=== PATIENT | female | born 1965 | race Caucasian/White ===

== ENCOUNTER 2023-09-16 15:23 | Inpatient (IN) | payer MEDICAID ==
[~2023-09-16] VITALS: Ht 160 cm; Wt 102.6 kg
[2023-09-16 16:34] LABS: BASOPHILS # (AUTO) 0.1 X10'3 (0-0.2); BASOPHILS % (AUTO) 0.3 % (0-1); EOSINOPHILS % (AUTO) 0.2 % (0-6); HEMATOCRIT 39.9 % (35.0-45.0); HEMOGLOBIN 13.1 g/dl (12.0-16.0); LYMPHOCYTES # (AUTO) 1.1 X10'3 (1.1-4.8); LYMPHOCYTES % (AUTO) 5.9 % (21-51); MEAN CORPUSCULAR HEMOGLOBIN 27.2 PG (27.0-31.0); MEAN CORPUSCULAR HGB CONC 32.8 g/dL (33.0-36.5); MEAN CORPUSCULAR VOLUME 83.1 FL (78-98); MEAN PLATELET VOLUME 8.5 FL (7.4-10.4); MONOCYTES # (AUTO) 1.4 X10'3 (0-0.9); MONOCYTES % (AUTO) 7.9 % (2-12); NEUTROPHILS # (AUTO) 15.4 X10'3 (1.8-7.7); NEUTROPHILS % (AUTO) 85.7 % (42-75); PLATELET COUNT 317 X10'3 (140-440); RED CELL DISTRIBUTION WIDTH 15.4 % (11.5-14.5)
[2023-09-16 16:47] LABS: ALBUMIN 2.6 G/DL (3.4-5.0); ANION GAP 16 (8-16); BLOOD UREA NITROGEN 29 MG/DL (7-18); BUN/CREATININE RATIO 20.6 (10.0-20.0); CALCIUM 9.7 MG/DL (8.5-10.1); CHLORIDE 92 MMOL/L (99-107); CREATININE 1.41 MG/DL (0.40-0.90); GLUCOSE 331 MG/DL (70-104); POTASSIUM 4.5 MMOL/L (3.5-5.1); SODIUM 127 MMOL/L (135-145); eCRCL 36 ML/MIN; eGFR 38 ML/MIN
[2023-09-16] MEDS: CLINDAMYCIN 600mg IN NS 50ML 50 ML IV ONE (17:50)
[2023-09-16 18:27] LABS: MAGNESIUM 2.4 MG/DL (1.5-2.4)
[2023-09-16 18:50] LABS: ETHANOL < 10 MG/DL (<10)
[2023-09-16 18:54] LABS: C-REACTIVE PROTEIN 28.27 MG/DL (0.0-0.5)
[2023-09-16] MEDS: insulin regular, human 10 units/0.1 ml syringe SQ ONE (18:57)
[2023-09-16] MEDS: piperacillin/tazo 3.375gm/50ml 50 ML IV STA (18:58)
[2023-09-16] MEDS: clindamycin 600mg/D5W 50ml 50 ML IV ONE (18:59)
[2023-09-16] MEDS: ondansetron/PF 4mg/2ml inj IV ONE (18:59)
[2023-09-16] MEDS: normal saline 1000ML IV soln IVB ONE (18:59)
[2023-09-16] MEDS: HYDROmorphone 1 mg/ml syringe IV ONE (18:59)
[2023-09-16] MEDS: TETanus/Pertussis (Acell)/Diphther VAC/PF (Tdap-Adult) 0.5ml syringe IMVAC ONE (19:00)
[2023-09-16 19:11] LABS: APTT 28 SECONDS (22-32); INR 1.1 INR; PROTHROMBIN TIME 11.1 SECONDS (9.0-12.0)
[2023-09-16] MEDS: vancomycin/NS 1 GM ADD-VANTAGE 250 ML IV SCH (20:25)
[2023-09-16] MEDS: normal saline 1000ml 1,000 ML IV ONE (20:26)
[2023-09-16] MEDS ORDERED: ondansetron/PF 4mg/2ml inj IV PRN (20:55)
[2023-09-16] MEDS ORDERED: mag hydrox/Alum hydrox/simeth 30ml oral suspension PO PRN (20:55)
[2023-09-16] MEDS ORDERED: potassium Cl 40MEQ/1/2NS 520ml 520 ML IV PRN (20:55)
[2023-09-16] MEDS ORDERED: magnesium hydroxide 30ml (MOM) UD suspension PO PRN (20:55)
[2023-09-16] MEDS ORDERED: magnesium 4gm in 100ml NS 100 ML IV PRN (20:55)
[2023-09-16] MEDS ORDERED: acetaminophen 325mg tablet PO PRN (20:55)
[2023-09-16] MEDS ORDERED: potassium Cl 20 mEq SR tablet PO PRN ×2 (20:55)
[2023-09-16] MEDS ORDERED: magnesium Cl slow-release 64mg tablet PO PRN (20:55)
[2023-09-17 00:30] LABS: BILIRUBIN,URINE NEGATIVE (Neg); COLOR,URINE YELLOW (Yellow); GLUCOSE, URINE >=1000 mg/dl (Neg); KETONES,URINE 15 mg/dl (Neg); LEUKOCYTE ESTERASE ,URINE NEGATIVE (Neg); NITRITES, URINE POSITIVE (Neg); OCCULT BLOOD,URINE SMALL (Neg); PROTEIN,URINE 30 mg/dl (Neg); UROBILINOGEN,URINE 0.2 E.U/dL (0.2-1.0)
[2023-09-17] MEDS: piperacillin/tazo 4.5gm/100ml 100 ML IV SCH (00:30)
[2023-09-17 00:41] LABS: CLARITY,URINE SLIGHTLY CLOUDY (Clear)
[2023-09-17 00:50] LABS: UA COLLECTION TYPE NON-SPECIFIED
[2023-09-17 00:53] LABS: MUCUS STRANDS FEW /LPF (Neg); SQUAMOUS EPITHELIAL CELL,UR FEW /LPF (FEW); TRANSITIONAL EPI CELLS,URINE FEW /HPF; WBC CLUMPS,URINE FEW /HPF (NEGATIVE)
[2023-09-17 00:54] LABS: RENAL CELLS, URINE MODERATE /HPF; YEAST MANY /HPF (NEGATIVE)
[2023-09-17 00:55] LABS: BACTERIA,URINE 3+ /HPF (Neg)
[2023-09-17 01:00] LABS: URINE AMPHETAMINE SCREEN NEGATIVE (Neg); URINE BARBITUATE SCREEN NEGATIVE (Neg); URINE BENZODIAZEPINES SCREEN NEGATIVE (Neg); URINE CANNABINOID SCREEN NEGATIVE (Neg); URINE COCAINE SCREEN NEGATIVE (Neg); URINE METHADONE SCREEN NEGATIVE (Neg); URINE OPIATE SCREEN POSITIVE (Neg); URINE PHENCYCLIDINE SCREEN NEGATIVE (Neg)
[2023-09-17] MEDS ORDERED: DEXTROSE 15 GM of carb/4 tabs (each vial/BOTTLE has 4 tablets) PO PRN ×2 (01:50)
[2023-09-17] MEDS ORDERED: glucagon, human recombinant 1mg kit SUBCUT PRN (01:50)
[2023-09-17] MEDS ORDERED: INSULIN LISPRO 100 UNIT/ML INSULN.PEN MULTI-DOSE SQ SCH (01:50)
[2023-09-17] MEDS ORDERED: dextrose 50%-water 50ml dispensing syringe IV PRN ×2 (01:50)
[2023-09-17] MEDS: MESSAGE TO PHARMACY PO ONE (02:35)
[2023-09-17] MEDS: ketorolac tromethamine 15mg/ml inj. IV ONE (03:19)
[2023-09-17 03:38] LABS: BASOPHILS # (AUTO) 0.1 X10'3 (0-0.2); BASOPHILS % (AUTO) 0.4 % (0-1); EOSINOPHILS # (AUTO) 0.1 X10'3 (0-0.9); EOSINOPHILS % (AUTO) 0.3 % (0-6); HEMATOCRIT 34.1 % (35.0-45.0); HEMOGLOBIN 11.1 g/dl (12.0-16.0); LYMPHOCYTES # (AUTO) 1.1 X10'3 (1.1-4.8); LYMPHOCYTES % (AUTO) 6.9 % (21-51); MEAN CORPUSCULAR HEMOGLOBIN 27.1 PG (27.0-31.0); MEAN CORPUSCULAR HGB CONC 32.7 g/dL (33.0-36.5); MEAN CORPUSCULAR VOLUME 82.9 FL (78-98); MEAN PLATELET VOLUME 8.1 FL (7.4-10.4); MONOCYTES # (AUTO) 1.6 X10'3 (0-0.9); MONOCYTES % (AUTO) 9.7 % (2-12); NEUTROPHILS # (AUTO) 13.2 X10'3 (1.8-7.7); NEUTROPHILS % (AUTO) 82.7 % (42-75); PLATELET COUNT 247 X10'3 (140-440); RED BLOOD COUNT 4.12 X10'6 (4.20-5.60); RED CELL DISTRIBUTION WIDTH 15.5 % (11.5-14.5)
[2023-09-17 03:53] LABS: ALBUMIN 2.1 G/DL (3.4-5.0); ANION GAP 9 (8-16); BLOOD UREA NITROGEN 30 MG/DL (7-18); BUN/CREATININE RATIO 21.7 (10.0-20.0); CALCIUM 8.1 MG/DL (8.5-10.1); CHLORIDE 95 MMOL/L (99-107); CREATININE 1.38 MG/DL (0.40-0.90); GLUCOSE 304 MG/DL (70-104); POTASSIUM 4.6 MMOL/L (3.5-5.1); SODIUM 126 MMOL/L (135-145); eCRCL 36 ML/MIN; eGFR 39 ML/MIN
[2023-09-17 04:01] LABS: HEMOGLOBIN A1C 9.3 % (4.5-6.2)
[2023-09-17] MEDS: ringers solution, lacted 1,000 ML IV ONE ×2 (04:15→16:44)
[2023-09-17 07:55] VITALS: BP 139/76; PULSE 87; RESP 16; TEMP 98.9; O2SAT 99
[2023-09-17 07:56] VITALS: RESP 16; O2SAT 99
[2023-09-17] MEDS: aspirin 81mg, enteric-coated 1 TAB TABLET.DR PO SCH (10:15)
[2023-09-17] MEDS: enoxaparin 40mg/0.4ml syringe SUBCUT SCH (10:16)
[2023-09-17] MEDS: atorvastatin 20mg tablet PO SCH (10:17)
[2023-09-17] MEDS: lisinopril 5mg tablet PO SCH (10:17)
[2023-09-17 11:27] VITALS: BP 144/74; PULSE 84; RESP 14; TEMP 99.2; O2SAT 98
[2023-09-17 13:15] VITALS: RESP 18; O2SAT 96
[2023-09-17] MEDS: insulin Lispro (HumaLOG) vial - multi-dose SQ SCH (14:39)
[2023-09-17 18:00] VITALS: BP 132/76; PULSE 85; RESP 14; TEMP 98; O2SAT 100
[2023-09-17 20:00] VITALS: RESP 18; O2SAT 96
[2023-09-17] MEDS: HYDROcodone/acetaminophen 5mg/325mg tablet PO PRN (20:16)
[2023-09-17] MEDS: insulin glargine (Lantus) pen - multi-dose SQ SCH (22:05)
[2023-09-18] VITALS (21 sets, daily range): BP systolic 108–188; BP diastolic 58–76; PULSE 71–90; RESP 12–20; TEMP 97.1–98.1; O2SAT 65–100
[2023-09-18] MEDS: famotidine 20mg tablet PO ONE (06:49)
[2023-09-18] MEDS ORDERED: hydrALAZINE 20mg/ml inj. IV PRN (07:15)
[2023-09-18] MEDS ORDERED: labetalol 20mg/4ml (5mg/ml) syringe IV PRN (07:15)
[2023-09-18] MEDS ORDERED: ondansetron/PF 4mg/2ml inj IV PRN (07:15)
[2023-09-18] MEDS ORDERED: proCHLORperazine 10 MG/2 ml inj IV PRN (07:15)
[2023-09-18] MEDS: ringers solution, lacted 1,000 ML IV SCH (07:15)
[2023-09-18] MEDS ORDERED: morphine 2 MG/ML inj. syringe IV PRN (07:15)
[2023-09-18] MEDS: acetaminophen 1,000mg/100ml IV 100 ML IV ONE (07:15)
[2023-09-18] MEDS: ketorolac trometh. 30mg/ml inj. IV ONE (07:15)
[2023-09-18] MEDS ORDERED: morphine 4 MG/ML inj SYRINge IV PRN (07:15)
[2023-09-18] MEDS ORDERED: meperidine/PF 25mg/ml syringe IV PRN ×3 (07:15)
[2023-09-18] MEDS: VANCOMYCIN LEVEL IV ONE (07:30)
[2023-09-18] MEDS ORDERED: sevoflurane 250ml liquid IH ONE (07:31)
[2023-09-18] MEDS ORDERED: fentaNYL/PF 50MCG/1 ML 2ML syringe ONE (07:42)
[2023-09-18] MEDS ORDERED: midazolam 1 mg/ML 2ml injection ONE (07:49)
[2023-09-18] MEDS ORDERED: propofol inj 20 ML IV ONE (07:49)
[2023-09-18] MEDS ORDERED: LIDOcaine 2% (20mg/ml) 5ml vial ONE (07:49)
[2023-09-18] MEDS ORDERED: ePHEDrine 50MG/ML INJ. ONE (07:55)
[2023-09-18] MEDS ORDERED: 0.9 % SODIUM CHLORIDE 10 ML VIAL ONE (07:55)
[2023-09-18] MEDS ORDERED: ondansetron/PF 4mg/2ml inj ONE (07:55)
[2023-09-18] MEDS: BUPIVAcaine/PF 2.5mg/ml (0.25%) 10ml vial ONE (08:09)
[2023-09-18 11:47] LABS: BASOPHILS % (AUTO) 0.2 % (0-1); EOSINOPHILS # (AUTO) 0.1 X10'3 (0-0.9); EOSINOPHILS % (AUTO) 0.7 % (0-6); HEMATOCRIT 33.9 % (35.0-45.0); HEMOGLOBIN 10.9 g/dl (12.0-16.0); LYMPHOCYTES # (AUTO) 1.2 X10'3 (1.1-4.8); LYMPHOCYTES % (AUTO) 8.3 % (21-51); MEAN CORPUSCULAR HEMOGLOBIN 26.9 PG (27.0-31.0); MEAN CORPUSCULAR HGB CONC 32.2 g/dL (33.0-36.5); MEAN CORPUSCULAR VOLUME 83.6 FL (78-98); MEAN PLATELET VOLUME 8.1 FL (7.4-10.4); MONOCYTES # (AUTO) 1.1 X10'3 (0-0.9); MONOCYTES % (AUTO) 7.5 % (2-12); NEUTROPHILS # (AUTO) 12.1 X10'3 (1.8-7.7); NEUTROPHILS % (AUTO) 83.3 % (42-75); PLATELET COUNT 269 X10'3 (140-440); RED BLOOD COUNT 4.06 X10'6 (4.20-5.60); RED CELL DISTRIBUTION WIDTH 15.7 % (11.5-14.5); WHITE BLOOD COUNT 14.5 X10'3 (4.5-11.0)
[2023-09-18 12:13] LABS: ALBUMIN 1.8 G/DL (3.4-5.0); ANION GAP 16 (8-16); BLOOD UREA NITROGEN 22 MG/DL (7-18); BUN/CREATININE RATIO 21.6 (10.0-20.0); CALCIUM 8.9 MG/DL (8.5-10.1); CHLORIDE 101 MMOL/L (99-107); CREATININE 1.02 MG/DL (0.40-0.90); GLUCOSE 245 MG/DL (70-104); POTASSIUM 4.5 MMOL/L (3.5-5.1); SODIUM 132 MMOL/L (135-145); TOTAL CARBON DIOXIDE 15.2 MMOL/L (24-32); VANCOMYCIN,TROUGH 14.3 ug/mL (10.0-20.0); eCRCL 49 ML/MIN; eGFR 55 ML/MIN
[2023-09-19 02:00] VITALS: BP 130/84; PULSE 81; RESP 16; TEMP 98.1; O2SAT 99
[2023-09-19] MEDS ORDERED: DEXTROSE 15 GM of carb/4 tabs (each vial/BOTTLE has 4 tablets) PO PRN ×2 (02:00)
[2023-09-19] MEDS ORDERED: dextrose 50%-water 50ml dispensing syringe IV PRN ×2 (02:00)
[2023-09-19] MEDS ORDERED: glucagon, human recombinant 1mg kit SUBCUT PRN (02:00)
[2023-09-19 06:30] VITALS: BP 122/71; PULSE 77; RESP 16; TEMP 97.9; O2SAT 99
[2023-09-19] MEDS: insulin Lispro (HumaLOG) vial - multi-dose SQ SCH ×3 (07:00→12:30)
[2023-09-19 07:46] LABS: BASOPHILS # (AUTO) 0.1 X10'3 (0-0.2); BASOPHILS % (AUTO) 0.4 % (0-1); EOSINOPHILS # (AUTO) 0.1 X10'3 (0-0.9); EOSINOPHILS % (AUTO) 1.1 % (0-6); HEMATOCRIT 34.8 % (35.0-45.0); HEMOGLOBIN 11.4 g/dl (12.0-16.0); LYMPHOCYTES # (AUTO) 1.3 X10'3 (1.1-4.8); LYMPHOCYTES % (AUTO) 9.2 % (21-51); MEAN CORPUSCULAR HGB CONC 32.8 g/dL (33.0-36.5); MEAN CORPUSCULAR VOLUME 82.5 FL (78-98); MEAN PLATELET VOLUME 8.1 FL (7.4-10.4); MONOCYTES # (AUTO) 1.1 X10'3 (0-0.9); MONOCYTES % (AUTO) 8.3 % (2-12); NEUTROPHILS # (AUTO) 11.2 X10'3 (1.8-7.7); PLATELET COUNT 304 X10'3 (140-440); RED BLOOD COUNT 4.21 X10'6 (4.20-5.60); RED CELL DISTRIBUTION WIDTH 15.5 % (11.5-14.5); WHITE BLOOD COUNT 13.8 X10'3 (4.5-11.0)
[2023-09-19 07:55] LABS: ALBUMIN 1.7 G/DL (3.4-5.0); ANION GAP 6 (8-16); BLOOD UREA NITROGEN 16 MG/DL (7-18); BUN/CREATININE RATIO 14.5 (10.0-20.0); CALCIUM 8.8 MG/DL (8.5-10.1); CHLORIDE 101 MMOL/L (99-107); GLUCOSE 182 MG/DL (70-104); POTASSIUM 3.9 MMOL/L (3.5-5.1); SODIUM 130 MMOL/L (135-145); eCRCL 46 ML/MIN; eGFR 51 ML/MIN
[2023-09-19 08:00] VITALS: RESP 16; O2SAT 99
[2023-09-19 10:00] VITALS: BP 123/55; PULSE 88; RESP 18; TEMP 98.1; O2SAT 97
[2023-09-19] MEDS: JUVEN Smoothie Arginine/Glut./Ca2+Bmb (Juven 19.3pkt) 240ml cup PO SCH (12:30)
[2023-09-19 18:00] VITALS: BP 132/80; PULSE 82; RESP 16; TEMP 98.2; O2SAT 99
[2023-09-19] MEDS: docusate sod 100mg capsule PO SCH (21:14)
[2023-09-19] MEDS: insulin glargine (Lantus) pen - multi-dose SQ SCH (21:22)
[2023-09-19] MEDS: morphine 2 MG/ML inj. syringe IV PRN (21:32)
[2023-09-19 22:00] VITALS: BP 127/82; PULSE 68; RESP 16; TEMP 97.6; O2SAT 97
[2023-09-20 07:02] VITALS: BP 141/83; PULSE 79; RESP 16; TEMP 97.9; O2SAT 100
[2023-09-20 07:19] LABS: BASOPHILS % (AUTO) 0.3 % (0-1); EOSINOPHILS # (AUTO) 0.2 X10'3 (0-0.9); EOSINOPHILS % (AUTO) 1.5 % (0-6); HEMATOCRIT 34.1 % (35.0-45.0); HEMOGLOBIN 11.1 g/dl (12.0-16.0); LYMPHOCYTES # (AUTO) 1.2 X10'3 (1.1-4.8); LYMPHOCYTES % (AUTO) 9.6 % (21-51); MEAN CORPUSCULAR HEMOGLOBIN 26.9 PG (27.0-31.0); MEAN CORPUSCULAR HGB CONC 32.4 g/dL (33.0-36.5); MEAN CORPUSCULAR VOLUME 82.9 FL (78-98); MEAN PLATELET VOLUME 7.9 FL (7.4-10.4); MONOCYTES # (AUTO) 1.1 X10'3 (0-0.9); MONOCYTES % (AUTO) 8.8 % (2-12); NEUTROPHILS # (AUTO) 10.2 X10'3 (1.8-7.7); NEUTROPHILS % (AUTO) 79.8 % (42-75); PLATELET COUNT 307 X10'3 (140-440); RED BLOOD COUNT 4.11 X10'6 (4.20-5.60); RED CELL DISTRIBUTION WIDTH 15.4 % (11.5-14.5); WHITE BLOOD COUNT 12.8 X10'3 (4.5-11.0)
[2023-09-20 07:30] LABS: ALBUMIN 1.6 G/DL (3.4-5.0); ANION GAP 9 (8-16); BLOOD UREA NITROGEN 21 MG/DL (7-18); BUN/CREATININE RATIO 19.6 (10.0-20.0); CALCIUM 8.7 MG/DL (8.5-10.1); CHLORIDE 99 MMOL/L (99-107); CREATININE 1.07 MG/DL (0.40-0.90); GLUCOSE 271 MG/DL (70-104); POTASSIUM 3.8 MMOL/L (3.5-5.1); SODIUM 130 MMOL/L (135-145); TOTAL CARBON DIOXIDE 22.4 MMOL/L (24-32); eCRCL 47 ML/MIN; eGFR 52 ML/MIN
[2023-09-20 09:00] VITALS: RESP 16; O2SAT 98
[2023-09-20 10:00] VITALS: BP 128/72; PULSE 85; RESP 16; TEMP 97.7; O2SAT 98
[2023-09-20 10:40] LABS: TOTAL CELLS COUNTED 100
[2023-09-20 10:42] LABS: PLATELET ESTIMATE NORMAL
[2023-09-20] MEDS ORDERED: SEMA2PEN SUBCUT (13:01)
[2023-09-20] MEDS ORDERED: LISI20TA28 PO (13:02)
[2023-09-20] MEDS ORDERED: METF-438 PO (13:04)
[2023-09-20] MEDS ORDERED: INSU100V11 SQ (13:05)
[2023-09-20] MEDS ORDERED: MELO-102 PO (13:05)
[2023-09-20] MEDS ORDERED: DULO-31 PO (13:06)
[2023-09-20] MEDS ORDERED: INSU100I31 (13:06)
[2023-09-20] MEDS ORDERED: GABA600T13 PO (13:08)
[2023-09-20] MEDS ORDERED: ATOR20TA PO (13:09)
[2023-09-20] MEDS ORDERED: DAPA10TA PO (13:11)
[2023-09-20] MEDS ORDERED: DICL100G59 TOP (13:13)
[2023-09-20] MEDS ORDERED: LIDO15CR11 TOP (13:14)
[2023-09-20] MEDS ORDERED: PRAZ1CAP5 PO (13:15)
[2023-09-20] MEDS: insulin Lispro (HumaLOG) vial - multi-dose SQ SCH (13:53)
[2023-09-20 18:00] VITALS: BP 128/78; PULSE 78; RESP 16; TEMP 98.3; O2SAT 100
[2023-09-20 20:00] VITALS: RESP 15; O2SAT 99
[2023-09-21 06:46] VITALS: BP 141/76; PULSE 77; RESP 14; TEMP 97.8; O2SAT 99
[2023-09-21 07:09] LABS: BASOPHILS # (AUTO) 0.1 X10'3 (0-0.2); BASOPHILS % (AUTO) 0.6 % (0-1); EOSINOPHILS # (AUTO) 0.3 X10'3 (0-0.9); EOSINOPHILS % (AUTO) 1.9 % (0-6); HEMATOCRIT 34.1 % (35.0-45.0); HEMOGLOBIN 11.1 g/dl (12.0-16.0); LYMPHOCYTES # (AUTO) 1.5 X10'3 (1.1-4.8); LYMPHOCYTES % (AUTO) 10.5 % (21-51); MEAN CORPUSCULAR HEMOGLOBIN 27.1 PG (27.0-31.0); MEAN CORPUSCULAR HGB CONC 32.7 g/dL (33.0-36.5); MEAN PLATELET VOLUME 7.7 FL (7.4-10.4); MONOCYTES % (AUTO) 6.8 % (2-12); NEUTROPHILS # (AUTO) 11.5 X10'3 (1.8-7.7); NEUTROPHILS % (AUTO) 80.2 % (42-75); PLATELET COUNT 356 X10'3 (140-440); RED CELL DISTRIBUTION WIDTH 15.3 % (11.5-14.5); WHITE BLOOD COUNT 14.3 X10'3 (4.5-11.0)
[2023-09-21 07:40] LABS: ALBUMIN 1.6 G/DL (3.4-5.0); ANION GAP 10 (8-16); BLOOD UREA NITROGEN 22 MG/DL (7-18); BUN/CREATININE RATIO 20.2 (10.0-20.0); CALCIUM 9.2 MG/DL (8.5-10.1); CHLORIDE 97 MMOL/L (99-107); CREATININE 1.09 MG/DL (0.40-0.90); GLUCOSE 245 MG/DL (70-104); POTASSIUM 4.2 MMOL/L (3.5-5.1); SODIUM 130 MMOL/L (135-145); TOTAL CARBON DIOXIDE 23.2 MMOL/L (24-32); eCRCL 46 ML/MIN; eGFR 51 ML/MIN
[2023-09-21 08:00] VITALS: RESP 18; O2SAT 97
[2023-09-21 08:33] VITALS: RESP 14
[2023-09-21] MEDS: lisinopril 20mg tablet PO SCH (10:13)
[2023-09-21] MEDS: duloxetine 30mg CAPSULE.DR PO SCH (10:13)
[2023-09-21] MEDS: gabapentin 300mg capsule PO SCH ×2 (10:13→19:29)
[2023-09-21 10:36] VITALS: BP 154/90; PULSE 81; RESP 16; TEMP 98.6; O2SAT 98
[2023-09-21 18:00] VITALS: BP 120/70; PULSE 84; RESP 16; TEMP 98.8; O2SAT 97
[2023-09-21] MEDS: acetaminophen 325mg tablet PO PRN (20:21)
[2023-09-21] MEDS: cyclobenzaprine 10mg tablet PO SCH (20:21)
[2023-09-21 22:25] VITALS: BP 142/78; PULSE 81; RESP 16; TEMP 98.4; O2SAT 97
[2023-09-21] MEDS: insulin glargine (Lantus) pen - multi-dose SQ SCH (22:35)
[2023-09-22 06:00] VITALS: BP 122/74; PULSE 78; RESP 18; TEMP 98.7; O2SAT 98
[2023-09-22 08:00] VITALS: RESP 14; O2SAT 98
[2023-09-22 10:12] LABS: BASOPHILS # (AUTO) 0.1 X10'3 (0-0.2); BASOPHILS % (AUTO) 0.3 % (0-1); EOSINOPHILS # (AUTO) 0.3 X10'3 (0-0.9); EOSINOPHILS % (AUTO) 2.1 % (0-6); HEMATOCRIT 33.4 % (35.0-45.0); HEMOGLOBIN 10.7 g/dl (12.0-16.0); LYMPHOCYTES # (AUTO) 1.6 X10'3 (1.1-4.8); LYMPHOCYTES % (AUTO) 10.2 % (21-51); MEAN CORPUSCULAR HEMOGLOBIN 26.6 PG (27.0-31.0); MEAN CORPUSCULAR HGB CONC 31.9 g/dL (33.0-36.5); MEAN CORPUSCULAR VOLUME 83.4 FL (78-98); MONOCYTES # (AUTO) 0.9 X10'3 (0-0.9); NEUTROPHILS # (AUTO) 12.5 X10'3 (1.8-7.7); NEUTROPHILS % (AUTO) 81.4 % (42-75); PLATELET COUNT 362 X10'3 (140-440); RED BLOOD COUNT 4.01 X10'6 (4.20-5.60); RED CELL DISTRIBUTION WIDTH 15.5 % (11.5-14.5); WHITE BLOOD COUNT 15.4 X10'3 (4.5-11.0)
[2023-09-22 10:23] LABS: ALBUMIN 1.7 G/DL (3.4-5.0); ANION GAP 9 (8-16); BLOOD UREA NITROGEN 24 MG/DL (7-18); BUN/CREATININE RATIO 18.2 (10.0-20.0); CHLORIDE 98 MMOL/L (99-107); CREATININE 1.32 MG/DL (0.40-0.90); GLUCOSE 387 MG/DL (70-104); POTASSIUM 4.1 MMOL/L (3.5-5.1); SODIUM 131 MMOL/L (135-145); TOTAL CARBON DIOXIDE 24.3 MMOL/L (24-32); eCRCL 38 ML/MIN; eGFR 41 ML/MIN
[2023-09-22 11:00] VITALS: BP 115/67; PULSE 83; RESP 18; TEMP 97.6; O2SAT 97
[2023-09-22] MEDS: insulin Lispro (HumaLOG) vial - multi-dose SQ SCH (13:43)
[2023-09-22 18:00] VITALS: BP 132/64; PULSE 82; RESP 16; TEMP 98.3; O2SAT 96
[2023-09-22 22:12] VITALS: BP 127/70; PULSE 74; RESP 16; TEMP 99.4; O2SAT 96
[2023-09-23 05:44] VITALS: BP 113/66; PULSE 77; RESP 18; TEMP 99.4; O2SAT 97
[2023-09-23 06:24] LABS: BASOPHILS # (AUTO) 0.1 X10'3 (0-0.2); BASOPHILS % (AUTO) 0.7 % (0-1); EOSINOPHILS # (AUTO) 0.3 X10'3 (0-0.9); EOSINOPHILS % (AUTO) 1.9 % (0-6); HEMATOCRIT 30.8 % (35.0-45.0); HEMOGLOBIN 10.2 g/dl (12.0-16.0); LYMPHOCYTES # (AUTO) 1.5 X10'3 (1.1-4.8); LYMPHOCYTES % (AUTO) 10.9 % (21-51); MEAN CORPUSCULAR HEMOGLOBIN 27.5 PG (27.0-31.0); MEAN CORPUSCULAR HGB CONC 33.1 g/dL (33.0-36.5); MEAN CORPUSCULAR VOLUME 83.2 FL (78-98); MEAN PLATELET VOLUME 7.3 FL (7.4-10.4); MONOCYTES # (AUTO) 0.9 X10'3 (0-0.9); MONOCYTES % (AUTO) 6.6 % (2-12); NEUTROPHILS # (AUTO) 10.8 X10'3 (1.8-7.7); NEUTROPHILS % (AUTO) 79.9 % (42-75); PLATELET COUNT 333 X10'3 (140-440); RED CELL DISTRIBUTION WIDTH 15.6 % (11.5-14.5); WHITE BLOOD COUNT 13.5 X10'3 (4.5-11.0)
[2023-09-23 06:34] LABS: ALBUMIN 1.5 G/DL (3.4-5.0); ANION GAP 4 (8-16); BLOOD UREA NITROGEN 19 MG/DL (7-18); BUN/CREATININE RATIO 14.5 (10.0-20.0); CALCIUM 8.7 MG/DL (8.5-10.1); CHLORIDE 100 MMOL/L (99-107); CREATININE 1.31 MG/DL (0.40-0.90); GLUCOSE 239 MG/DL (70-104); POTASSIUM 4.2 MMOL/L (3.5-5.1); SODIUM 130 MMOL/L (135-145); TOTAL CARBON DIOXIDE 25.8 MMOL/L (24-32); eCRCL 38 ML/MIN; eGFR 42 ML/MIN
[2023-09-23 07:45] VITALS: BP 140/78; PULSE 82; RESP 14; TEMP 98.7; O2SAT 96
[2023-09-23 10:45] VITALS: RESP 14; O2SAT 96
[2023-09-23 18:00] VITALS: BP 107/60; PULSE 72; RESP 18; TEMP 97.7; O2SAT 98
[2023-09-23 22:00] VITALS: BP 125/56; PULSE 73; RESP 15; TEMP 97.4; O2SAT 99
[2023-09-24] VITALS (17 sets, daily range): BP systolic 87–138; BP diastolic 50–74; PULSE 18–86; RESP 13–20; TEMP 97.7–98.7; O2SAT 92–100
[2023-09-24 06:46] LABS: ALBUMIN 1.5 G/DL (3.4-5.0); ANION GAP 6 (8-16); BASOPHILS # (AUTO) 0.1 X10'3 (0-0.2); BASOPHILS % (AUTO) 0.7 % (0-1); BLOOD UREA NITROGEN 19 MG/DL (7-18); BUN/CREATININE RATIO 17.8 (10.0-20.0); CALCIUM 8.9 MG/DL (8.5-10.1); CHLORIDE 101 MMOL/L (99-107); CREATININE 1.07 MG/DL (0.40-0.90); EOSINOPHILS # (AUTO) 0.3 X10'3 (0-0.9); EOSINOPHILS % (AUTO) 2.3 % (0-6); GLUCOSE 255 MG/DL (70-104); HEMATOCRIT 30.8 % (35.0-45.0); LYMPHOCYTES # (AUTO) 1.5 X10'3 (1.1-4.8); LYMPHOCYTES % (AUTO) 12.1 % (21-51); MEAN CORPUSCULAR HGB CONC 32.6 g/dL (33.0-36.5); MEAN CORPUSCULAR VOLUME 82.8 FL (78-98); MEAN PLATELET VOLUME 7.4 FL (7.4-10.4); MONOCYTES # (AUTO) 0.9 X10'3 (0-0.9); NEUTROPHILS # (AUTO) 9.7 X10'3 (1.8-7.7); NEUTROPHILS % (AUTO) 77.9 % (42-75); PLATELET COUNT 347 X10'3 (140-440); POTASSIUM 4.1 MMOL/L (3.5-5.1); RED BLOOD COUNT 3.72 X10'6 (4.20-5.60); RED CELL DISTRIBUTION WIDTH 15.5 % (11.5-14.5); SODIUM 132 MMOL/L (135-145); TOTAL CARBON DIOXIDE 24.6 MMOL/L (24-32); WHITE BLOOD COUNT 12.4 X10'3 (4.5-11.0); eCRCL 47 ML/MIN; eGFR 52 ML/MIN
[2023-09-24] MEDS ORDERED: morphine 4 MG/ML inj SYRINge IV PRN (07:55)
[2023-09-24] MEDS ORDERED: meperidine/PF 25mg/ml syringe IV PRN ×2 (07:55)
[2023-09-24] MEDS ORDERED: ringers solution, lacted 1,000 ML IV SCH (07:55)
[2023-09-24] MEDS ORDERED: enalaprilat dihydrate 2.5mg/2ml vial IV PRN (07:55)
[2023-09-24] MEDS ORDERED: labetalol 20mg/4ml (5mg/ml) syringe IV PRN (07:55)
[2023-09-24] MEDS ORDERED: ondansetron/PF 4mg/2ml inj IV PRN (07:55)
[2023-09-24] MEDS ORDERED: morphine 2 MG/ML inj. syringe IV PRN (07:55)
[2023-09-24] MEDS ORDERED: proCHLORperazine 10 MG/2 ml inj IV PRN (07:55)
[2023-09-24] MEDS ORDERED: sevoflurane 250ml liquid IH ONE (08:38)
[2023-09-24] MEDS ORDERED: midazolam 1 mg/ML 2ml injection ONE (08:44)
[2023-09-24] MEDS ORDERED: fentaNYL/PF 50MCG/1 ML 2ML syringe ONE (08:44)
[2023-09-24] MEDS ORDERED: propofol inj 20 ML IV ONE (08:47)
[2023-09-24] MEDS ORDERED: LIDOcaine 2% (20mg/ml) 5ml vial ONE (08:48)
[2023-09-24] MEDS: BUPIVAcaine/PF 2.5mg/ml (0.25%) 10ml vial ONE (09:58)
[2023-09-24] MEDS: meperidine/PF 25mg/ml syringe IV PRN (10:38)
[2023-09-24] MEDS ORDERED: HYDROmorphone inj. 0.5 MG/0.5 ML DISP.SYRIN IV PRN (18:05)
[2023-09-24] MEDS: HYDROcodone/acetaminophen 10/325mg tab PO PRN (20:08)
[2023-09-25 02:00] VITALS: BP 123/68; PULSE 87; RESP 15; TEMP 97.4; O2SAT 95
[2023-09-25 06:00] VITALS: BP 121/82; PULSE 76; RESP 16; TEMP 98.2; O2SAT 97
[2023-09-25 06:41] LABS: BASOPHILS % (AUTO) 0.4 % (0-1); EOSINOPHILS # (AUTO) 0.2 X10'3 (0-0.9); EOSINOPHILS % (AUTO) 2.1 % (0-6); HEMOGLOBIN 9.5 g/dl (12.0-16.0); LYMPHOCYTES # (AUTO) 1.5 X10'3 (1.1-4.8); LYMPHOCYTES % (AUTO) 13.8 % (21-51); MEAN CORPUSCULAR HEMOGLOBIN 27.4 PG (27.0-31.0); MEAN CORPUSCULAR HGB CONC 32.7 g/dL (33.0-36.5); MEAN CORPUSCULAR VOLUME 83.6 FL (78-98); MEAN PLATELET VOLUME 7.4 FL (7.4-10.4); MONOCYTES # (AUTO) 0.9 X10'3 (0-0.9); MONOCYTES % (AUTO) 7.8 % (2-12); NEUTROPHILS # (AUTO) 8.3 X10'3 (1.8-7.7); NEUTROPHILS % (AUTO) 75.9 % (42-75); PLATELET COUNT 332 X10'3 (140-440); RED BLOOD COUNT 3.47 X10'6 (4.20-5.60); RED CELL DISTRIBUTION WIDTH 15.2 % (11.5-14.5); WHITE BLOOD COUNT 10.9 X10'3 (4.5-11.0)
[2023-09-25 06:47] LABS: ALBUMIN 1.6 G/DL (3.4-5.0); ANION GAP 7 (8-16); BLOOD UREA NITROGEN 19 MG/DL (7-18); CALCIUM 8.8 MG/DL (8.5-10.1); CHLORIDE 102 MMOL/L (99-107); CREATININE 1.36 MG/DL (0.40-0.90); GLUCOSE 290 MG/DL (70-104); POTASSIUM 4.4 MMOL/L (3.5-5.1); SODIUM 134 MMOL/L (135-145); TOTAL CARBON DIOXIDE 25.4 MMOL/L (24-32); eCRCL 37 ML/MIN; eGFR 40 ML/MIN
[2023-09-25] MEDS: normal saline 1000ml 1,000 ML IV SCH (08:59)
[2023-09-25 10:00] VITALS: BP 107/64; PULSE 86; RESP 16; TEMP 97.1; O2SAT 95
[2023-09-25 18:00] VITALS: BP 114/65; PULSE 85; RESP 16; TEMP 98.1; O2SAT 96
[2023-09-25 22:00] VITALS: BP 137/72; PULSE 83; RESP 16; TEMP 98.7; O2SAT 97
[2023-09-25] MEDS: insulin glargine (Lantus) pen - multi-dose SQ SCH (22:48)
[2023-09-26 06:00] VITALS: BP 114/69; PULSE 78; RESP 16; TEMP 98; O2SAT 99
[2023-09-26 07:34] LABS: BASOPHILS % (AUTO) 0.4 % (0-1); EOSINOPHILS # (AUTO) 0.3 X10'3 (0-0.9); HEMATOCRIT 26.9 % (35.0-45.0); HEMOGLOBIN 8.8 g/dl (12.0-16.0); LYMPHOCYTES # (AUTO) 1.5 X10'3 (1.1-4.8); LYMPHOCYTES % (AUTO) 15.6 % (21-51); MEAN CORPUSCULAR HEMOGLOBIN 27.4 PG (27.0-31.0); MEAN CORPUSCULAR HGB CONC 32.7 g/dL (33.0-36.5); MEAN CORPUSCULAR VOLUME 83.8 FL (78-98); MEAN PLATELET VOLUME 7.2 FL (7.4-10.4); MONOCYTES # (AUTO) 0.6 X10'3 (0-0.9); MONOCYTES % (AUTO) 6.5 % (2-12); NEUTROPHILS # (AUTO) 7.3 X10'3 (1.8-7.7); NEUTROPHILS % (AUTO) 74.5 % (42-75); PLATELET COUNT 317 X10'3 (140-440); RED BLOOD COUNT 3.21 X10'6 (4.20-5.60); RED CELL DISTRIBUTION WIDTH 15.2 % (11.5-14.5); WHITE BLOOD COUNT 9.8 X10'3 (4.5-11.0)
[2023-09-26 07:41] LABS: ALBUMIN 1.4 G/DL (3.4-5.0); ANION GAP 5 (8-16); BLOOD UREA NITROGEN 19 MG/DL (7-18); BUN/CREATININE RATIO 13.5 (10.0-20.0); CALCIUM 8.4 MG/DL (8.5-10.1); CHLORIDE 101 MMOL/L (99-107); CREATININE 1.41 MG/DL (0.40-0.90); GLUCOSE 255 MG/DL (70-104); POTASSIUM 4.3 MMOL/L (3.5-5.1); SODIUM 133 MMOL/L (135-145); TOTAL CARBON DIOXIDE 27.4 MMOL/L (24-32); eCRCL 36 ML/MIN; eGFR 38 ML/MIN
[2023-09-26] MEDS: HYDROcodone/acetaminophen 10/325mg tab PO PRN (08:46)
[2023-09-26 10:00] VITALS: BP 120/69; PULSE 79; RESP 16; TEMP 98.4; O2SAT 98
[2023-09-26 18:00] VITALS: BP 120/71; PULSE 79; RESP 14; TEMP 98.1; O2SAT 97
[2023-09-26 22:00] VITALS: BP 135/68; PULSE 79; RESP 16; TEMP 97.8; O2SAT 99
[2023-09-27 07:11] LABS: BASOPHILS # (AUTO) 0.1 X10'3 (0-0.2); BASOPHILS % (AUTO) 0.5 % (0-1); EOSINOPHILS # (AUTO) 0.3 X10'3 (0-0.9); EOSINOPHILS % (AUTO) 2.6 % (0-6); HEMATOCRIT 29.1 % (35.0-45.0); HEMOGLOBIN 9.7 g/dl (12.0-16.0); LYMPHOCYTES # (AUTO) 1.4 X10'3 (1.1-4.8); LYMPHOCYTES % (AUTO) 14.2 % (21-51); MEAN CORPUSCULAR HEMOGLOBIN 27.7 PG (27.0-31.0); MEAN CORPUSCULAR HGB CONC 33.3 g/dL (33.0-36.5); MEAN CORPUSCULAR VOLUME 83.2 FL (78-98); MEAN PLATELET VOLUME 7.2 FL (7.4-10.4); MONOCYTES # (AUTO) 0.6 X10'3 (0-0.9); MONOCYTES % (AUTO) 5.7 % (2-12); NEUTROPHILS # (AUTO) 7.6 X10'3 (1.8-7.7); PLATELET COUNT 346 X10'3 (140-440); RED CELL DISTRIBUTION WIDTH 15.3 % (11.5-14.5); WHITE BLOOD COUNT 9.8 X10'3 (4.5-11.0)
[2023-09-27 07:28] LABS: ALBUMIN 1.6 G/DL (3.4-5.0); ANION GAP 7 (8-16); BLOOD UREA NITROGEN 19 MG/DL (7-18); BUN/CREATININE RATIO 14.6 (10.0-20.0); CALCIUM 9.2 MG/DL (8.5-10.1); CHLORIDE 101 MMOL/L (99-107); GLUCOSE 260 MG/DL (70-104); POTASSIUM 4.6 MMOL/L (3.5-5.1); SODIUM 134 MMOL/L (135-145); TOTAL CARBON DIOXIDE 25.7 MMOL/L (24-32); eCRCL 39 ML/MIN; eGFR 42 ML/MIN
[2023-09-27 08:15] VITALS: RESP 16; O2SAT 98
[2023-09-27 13:45] VITALS: PULSE 62; RESP 18; TEMP 97.7; O2SAT 98
[2023-09-27 18:00] VITALS: BP 120/69; PULSE 68; RESP 16; TEMP 97.4; O2SAT 99
[2023-09-27 20:03] VITALS: RESP 14; O2SAT 99
[2023-09-28 06:00] VITALS: BP 115/69; PULSE 78; RESP 16; TEMP 98.2; O2SAT 98
[2023-09-28 08:00] VITALS: RESP 14; O2SAT 99
[2023-09-28 10:52] VITALS: BP 130/74; PULSE 82; RESP 18; TEMP 97.4; O2SAT 96
[2023-09-28 11:01] VITALS: TEMP 97.8
[2023-09-28 22:00] VITALS: BP 131/71; PULSE 82; RESP 16; TEMP 98.4; O2SAT 98
[2023-09-29 06:00] VITALS: BP 118/63; PULSE 74; RESP 15; TEMP 97; O2SAT 99
[2023-09-29 10:00] VITALS: BP 135/75; PULSE 79; RESP 18; TEMP 97.8; O2SAT 98
[2023-09-29 10:10] LABS: BASOPHILS % (AUTO) 0.5 % (0-1); EOSINOPHILS # (AUTO) 0.4 X10'3 (0-0.9); EOSINOPHILS % (AUTO) 4.7 % (0-6); HEMATOCRIT 28.8 % (35.0-45.0); HEMOGLOBIN 9.6 g/dl (12.0-16.0); LYMPHOCYTES # (AUTO) 1.2 X10'3 (1.1-4.8); LYMPHOCYTES % (AUTO) 14.7 % (21-51); MEAN CORPUSCULAR HGB CONC 33.5 g/dL (33.0-36.5); MEAN CORPUSCULAR VOLUME 83.5 FL (78-98); MEAN PLATELET VOLUME 6.7 FL (7.4-10.4); MONOCYTES # (AUTO) 0.4 X10'3 (0-0.9); MONOCYTES % (AUTO) 4.9 % (2-12); NEUTROPHILS # (AUTO) 6.4 X10'3 (1.8-7.7); NEUTROPHILS % (AUTO) 75.2 % (42-75); PLATELET COUNT 397 X10'3 (140-440); RED BLOOD COUNT 3.45 X10'6 (4.20-5.60); RED CELL DISTRIBUTION WIDTH 15.1 % (11.5-14.5); WHITE BLOOD COUNT 8.5 X10'3 (4.5-11.0)
[2023-09-29 10:45] LABS: ALANINE AMINOTRANSFERASE 22 U/L (12-78); ALBUMIN 1.6 G/DL (3.4-5.0); ALBUMIN/GLOBULIN RATIO 0.2 (1.1-1.5); ALKALINE PHOSPHATASE 86 IU/L (46-116); ANION GAP 5 (8-16); ASPARTATE AMINO TRANSFERASE 15 U/L (10-37); BILIRUBIN,TOTAL 0.2 MG/DL (0.1-1.0); BLOOD UREA NITROGEN 19 MG/DL (7-18); BUN/CREATININE RATIO 14.8 (10.0-20.0); CALCIUM 8.9 MG/DL (8.5-10.1); CHLORIDE 101 MMOL/L (99-107); CREATININE 1.28 MG/DL (0.40-0.90); GLUCOSE 222 MG/DL (70-104); POTASSIUM 3.9 MMOL/L (3.5-5.1); SODIUM 134 MMOL/L (135-145); TOTAL CARBON DIOXIDE 28.3 MMOL/L (24-32); TOTAL PROTEIN 8.1 G/DL (6.4-8.2); eCRCL 39 ML/MIN; eGFR 43 ML/MIN
[2023-09-29 18:00] VITALS: BP 106/66; PULSE 83; RESP 17; TEMP 97.2; O2SAT 97
[2023-09-29 20:00] VITALS: RESP 18; O2SAT 97
[2023-09-29 22:00] VITALS: BP 118/68; PULSE 78; RESP 15; TEMP 97.6; O2SAT 99
[2023-09-30 06:00] VITALS: BP 129/75; PULSE 77; RESP 14; TEMP 97; O2SAT 99
[2023-09-30 07:26] LABS: BASOPHILS % (AUTO) 0.2 % (0-1); EOSINOPHILS # (AUTO) 0.4 X10'3 (0-0.9); EOSINOPHILS % (AUTO) 5.9 % (0-6); HEMOGLOBIN 9.1 g/dl (12.0-16.0); LYMPHOCYTES # (AUTO) 1.5 X10'3 (1.1-4.8); LYMPHOCYTES % (AUTO) 20.6 % (21-51); MEAN CORPUSCULAR HEMOGLOBIN 27.4 PG (27.0-31.0); MEAN CORPUSCULAR HGB CONC 32.6 g/dL (33.0-36.5); MEAN CORPUSCULAR VOLUME 83.9 FL (78-98); MEAN PLATELET VOLUME 7.1 FL (7.4-10.4); MONOCYTES # (AUTO) 0.5 X10'3 (0-0.9); MONOCYTES % (AUTO) 6.9 % (2-12); NEUTROPHILS # (AUTO) 4.7 X10'3 (1.8-7.7); NEUTROPHILS % (AUTO) 66.4 % (42-75); PLATELET COUNT 368 X10'3 (140-440); RED BLOOD COUNT 3.34 X10'6 (4.20-5.60); RED CELL DISTRIBUTION WIDTH 15.3 % (11.5-14.5); WHITE BLOOD COUNT 7.1 X10'3 (4.5-11.0)
[2023-09-30 08:06] LABS: ALANINE AMINOTRANSFERASE 18 U/L (12-78); ALBUMIN 1.5 G/DL (3.4-5.0); ALBUMIN/GLOBULIN RATIO 0.2 (1.1-1.5); ALKALINE PHOSPHATASE 76 IU/L (46-116); ANION GAP 5 (8-16); ASPARTATE AMINO TRANSFERASE 11 U/L (10-37); BILIRUBIN,TOTAL 0.2 MG/DL (0.1-1.0); BLOOD UREA NITROGEN 23 MG/DL (7-18); CALCIUM 8.9 MG/DL (8.5-10.1); CHLORIDE 103 MMOL/L (99-107); CREATININE 1.35 MG/DL (0.40-0.90); GLUCOSE 212 MG/DL (70-104); POTASSIUM 4.5 MMOL/L (3.5-5.1); SODIUM 137 MMOL/L (135-145); TOTAL CARBON DIOXIDE 29.1 MMOL/L (24-32); TOTAL PROTEIN 7.7 G/DL (6.4-8.2); eCRCL 37 ML/MIN; eGFR 40 ML/MIN
[2023-09-30 10:35] VITALS: BP 121/62; PULSE 77; RESP 17; TEMP 98.5; O2SAT 97
== END 2023-09-30 15:00 | DRG 305 ==
LOC: ER 15:23 → ED HOLD 21:04 → EDBEDREQ 09-17 06:18 → ORTHO 4S 09-17 07:35
PROVIDERS: ADMIT Internal Medicine Critical Care Medicine; ATTEND Internal Medicine
PROC: 0Y6P0Z1 Detachment at Right 1st Toe, High, Open Approach (ICD-10-PCS; 2023-09-18)
PROC: 0Y6M0Z0 Detachment at Right Foot, Complete, Open Approach (ICD-10-PCS; principal; 2023-09-21)
DX: E11.69 Type 2 diabetes mellitus with other specified complication (principal); N17.0 Acute kidney failure with tubular necrosis; A48.0 Gas gangrene; J98.2 Interstitial emphysema; E87.1 Hypo-osmolality and hyponatremia; M86.8X7 Other osteomyelitis, ankle and foot; E11.52 Type 2 diabetes mellitus with diabetic peripheral angiopathy with gangrene; L03.115 Cellulitis of right lower limb; E11.40 Type 2 diabetes mellitus with diabetic neuropathy, unspecified; E11.621 Type 2 diabetes mellitus with foot ulcer; L97.519 Non-pressure chronic ulcer of other part of right foot with unspecified severity; E11.65 Type 2 diabetes mellitus with hyperglycemia; D72.829 Elevated white blood cell count, unspecified; Z20.822 Contact with and (suspected) exposure to COVID-19; L03.031 Cellulitis of right toe; E86.0 Dehydration; I10 Essential (primary) hypertension; E66.01 Morbid (severe) obesity due to excess calories; Z98.891 History of uterine scar from previous surgery; Z68.41 Body mass index [BMI] 40.0-44.9, adult
CPT/HCPCS: 36415; 71045; 73630; 73718; 80048; 80053; 80202; 80305; 80320; 81001; 82948; 83036; 83605; 83735; 84145; 85007; 85025; 85610; 85651; 85730; 86140; 87040; 87070; 87075; 87076; 87077; 87081; 87088; 87102; 87186; 87502; 87503; 87811; 90471; 90715; 93005; 93922; 96365; 96367; 96375; 97116; 97161; 97530; 97535; 99285; A4618; A6154; A6222; A6223; A6250; A6253; A6258; A6446; A6449; A7000; G0378; J1100; J1170; J1650; J1815; J1885; J2175; J2250; J2270; J2405; J2543; J2704; J3010; J3370; J3490; J7030; J7040; J7120

== ENCOUNTER 2023-11-12 23:15 | Inpatient (IN) | payer MEDICAID ==
[~2023-11-12] VITALS: Ht 160 cm; Wt 97.7 kg
[~2023-11-12 23:15] MED LIST: ATOR20TA PO; DAPA10TA PO; DICL100G59 TOP; DULO-31 PO; GABA600T13 PO; INSU100I31; INSU100V11 SQ; LIDO15CR11 TOP; LISI20TA28 PO; MELO-102 PO; METF-438 PO; PRAZ1CAP5 PO; SEMA2PEN SUBCUT
[2023-11-12 23:49] LABS: BASOPHILS % (AUTO) 0.2 % (0-1); BILIRUBIN,URINE SMALL (Neg); CLARITY,URINE SLIGHTLY CLOUDY (Clear); COLOR,URINE YELLOW (Yellow); EOSINOPHILS % (AUTO) 0 % (0-6); GLUCOSE, URINE >=1000 mg/dl (Neg); KETONES,URINE 40 mg/dl (Neg); LEUKOCYTE ESTERASE ,URINE NEGATIVE (Neg); MEAN CORPUSCULAR VOLUME 81.2 FL (78-98); MEAN PLATELET VOLUME 7.9 FL (7.4-10.4); MONOCYTES # (AUTO) 0.6 X10'3 (0-0.9); NITRITES, URINE NEGATIVE (Neg); OCCULT BLOOD,URINE MODERATE (Neg); PH,URINE 5.5 (4.8-8.0); PROTEIN,URINE 100 mg/dl (Neg); UROBILINOGEN,URINE 0.2 E.U/dL (0.2-1.0)
[2023-11-12 23:51] LABS: HEMATOCRIT 27.1 % (35.0-45.0); HEMOGLOBIN 8.9 g/dl (12.0-16.0); LYMPHOCYTES # (AUTO) 0.4 X10'3 (1.1-4.8); MEAN CORPUSCULAR HEMOGLOBIN 26.7 PG (27.0-31.0); MEAN CORPUSCULAR HGB CONC 32.9 g/dL (33.0-36.5); MONOCYTES % (AUTO) 6.7 % (2-12); NEUTROPHILS % (AUTO) 89.1 % (42-75); PLATELET COUNT 214 X10'3 (140-440); RED BLOOD COUNT 3.33 X10'6 (4.20-5.60); RED CELL DISTRIBUTION WIDTH 16.8 % (11.5-14.5)
[2023-11-12 23:55] LABS: UA COLLECTION TYPE FOLEY CATH
[2023-11-12 23:58] LABS: BACTERIA,URINE FEW /HPF (Neg); SQUAMOUS EPITHELIAL CELL,UR FEW /LPF (FEW); WBC,URINE 0-4 /HPF (0-4)
[2023-11-12 23:59] LABS: ALBUMIN 2.1 G/DL (3.4-5.0); ANION GAP 16 (8-16); BLOOD UREA NITROGEN 29 MG/DL (7-18); BUN/CREATININE RATIO 21.2 (10.0-20.0); CALCIUM 8.1 MG/DL (8.5-10.1); CHLORIDE 91 MMOL/L (99-107); CREATININE 1.37 MG/DL (0.40-0.90); GLUCOSE 307 MG/DL (70-104); MUCUS STRANDS FEW /LPF (Neg); SODIUM 122 MMOL/L (135-145); eCRCL 37 ML/MIN; eGFR 39 ML/MIN
[2023-11-13] VITALS (8 sets, daily range): BP systolic 115–142; BP diastolic 61–67; PULSE 83–102; RESP 12–23; TEMP 97.3–100.7; O2SAT 93–98
[2023-11-13 00:02] LABS: AMORPHOUS URATES 1+; TOTAL CARBON DIOXIDE 14.9 MMOL/L (24-32)
[2023-11-13] MEDS ORDERED: ondansetron/PF 4mg/2ml inj IV PRN (02:15)
[2023-11-13] MEDS ORDERED: mag hydrox/Alum hydrox/simeth 30ml oral suspension PO PRN (02:15)
[2023-11-13] MEDS ORDERED: potassium Cl 20 mEq SR tablet PO PRN ×2 (02:15)
[2023-11-13] MEDS ORDERED: magnesium hydroxide 30ml (MOM) UD suspension PO PRN (02:15)
[2023-11-13] MEDS ORDERED: magnesium 4gm in 100ml NS 100 ML IV PRN (02:15)
[2023-11-13] MEDS ORDERED: magnesium Cl slow-release 64mg tablet PO PRN (02:15)
[2023-11-13] MEDS ORDERED: potassium Cl 40MEQ/1/2NS 520ml 520 ML IV PRN (02:15)
[2023-11-13] MEDS ORDERED: magnesium 2GM in 50ml NS 50 ML IV PRN (02:15)
[2023-11-13] MEDS: normal saline 1000ml 1,000 ML IV ONE (02:17)
[2023-11-13 02:47] LABS: ABG BASE EXCESS -10.3 mmol/L (-2.0-2.0); ABG HCO3 13.6 mmol/L (22.0-26.0); ABG OXYGEN SATURATION 96.7 % (94-97); ABG PCO2 (T) 24.4 mmHg (32.0-45.0); ABG PH (T) 7.366 (7.350-7.450); ABG PO2 (T) 86.9 mmHg (75.0-100.0); ALLEN'S TEST Modified; FCOHb 0.3 % (0.0-3.9); FHHb 3.3 % (0.0-5.0); FMetHb 0.3 % (0.0-1.5); FO2Hb 96.1 % (94-97); MODE RA; PATIENT TEMPERATURE 37.1; TOTAL HEMOGLOBIN 9.7 G/dl (12.0-16.0)
[2023-11-13] MEDS: Insulin Reg/NS 100units/100mL 100 ML IV SCH (03:05)
[2023-11-13] MEDS: normal saline 1000ml 1,000 ML IV SCH ×2 (03:07→12:12)
[2023-11-13] MEDS: vancomycin/NS 1 GM ADD-VANTAGE 250 ML IV SCH (03:36)
[2023-11-13] MEDS: insulin regular, human U-100 3ml vial - multi-dose IV PRN (04:13)
[2023-11-13] MEDS: potassium CL 20mEq in D5-1/2NS 1,000 ML IV PRN (05:49)
[2023-11-13 06:39] LABS: POTASSIUM 3.4 MMOL/L (3.5-5.1)
[2023-11-13 07:15] LABS: ALBUMIN 2.1 G/DL (3.4-5.0); ANION GAP 10 (8-16); BLOOD UREA NITROGEN 26 MG/DL (7-18); BUN/CREATININE RATIO 22.8 (10.0-20.0); CALCIUM 8.6 MG/DL (8.5-10.1); CHLORIDE 98 MMOL/L (99-107); CREATININE 1.14 MG/DL (0.40-0.90); GLUCOSE 184 MG/DL (70-104); POTASSIUM 3.6 MMOL/L (3.5-5.1); SODIUM 126 MMOL/L (135-145); TOTAL CARBON DIOXIDE 18.2 MMOL/L (24-32); eCRCL 44 ML/MIN; eGFR 49 ML/MIN
[2023-11-13 07:31] LABS: % IRON SATURATION 6 % (11-46); IRON 9 UG/DL (49-151); TOTAL IRON BINDING CAPACITY 153 UG/DL (259-388)
[2023-11-13] MEDS: K and/or MAG REPLACEMENT MC SCH (08:00)
[2023-11-13] MEDS: heparin, porcine 5000 units/ml vial SQ SCH (08:25)
[2023-11-13] MEDS: docusate sod 100mg capsule PO SCH (08:25)
[2023-11-13] MEDS: CefTRIAXone/D5W-Rocephin 1gm 50 ML IV SCH (08:25)
[2023-11-13 10:17] LABS: ALANINE AMINOTRANSFERASE 14 U/L (12-78); ALBUMIN 2.1 G/DL (3.4-5.0); ALBUMIN/GLOBULIN RATIO 0.3 (1.1-1.5); ALKALINE PHOSPHATASE 87 IU/L (46-116); ANION GAP 11 (8-16); ASPARTATE AMINO TRANSFERASE 25 U/L (10-37); BILIRUBIN,TOTAL 0.3 MG/DL (0.1-1.0); BLOOD UREA NITROGEN 23 MG/DL (7-18); BUN/CREATININE RATIO 21.3 (10.0-20.0); CALCIUM 8.6 MG/DL (8.5-10.1); CHLORIDE 98 MMOL/L (99-107); CREATININE 1.08 MG/DL (0.40-0.90); GLUCOSE 169 MG/DL (70-104); PHOSPHORUS 2.1 MG/DL (2.3-4.5); POTASSIUM 3.6 MMOL/L (3.5-5.1); SODIUM 127 MMOL/L (135-145); TOTAL CARBON DIOXIDE 18.3 MMOL/L (24-32); TOTAL PROTEIN 8.4 G/DL (6.4-8.2); eCRCL 46 ML/MIN; eGFR 52 ML/MIN
[2023-11-13] MEDS: acetaminophen 325mg tablet PO PRN (11:36)
[2023-11-13] MEDS ORDERED: cefepime 1GM/NS ADD-VANTAGE 100 ML IV SCH (11:55)
[2023-11-13] MEDS ORDERED: DEXTROSE 15 GM of carb/4 tabs (each vial/BOTTLE has 4 tablets) PO PRN ×2 (12:00)
[2023-11-13] MEDS: INSULIN LISPRO 100 UNIT/ML INSULN.PEN MULTI-DOSE SQ SCH ×2 (12:00→13:00)
[2023-11-13] MEDS: insulin glargine (Lantus) pen - multi-dose SQ SCH (12:00)
[2023-11-13] MEDS ORDERED: glucagon, human recombinant 1mg kit SUBCUT PRN (12:00)
[2023-11-13] MEDS ORDERED: dextrose 50%-water 50ml dispensing syringe IV PRN ×2 (12:00)
[2023-11-13] MEDS: cefepime 1GM/NS ADD-VANTAGE 100 ML IV SCH (13:20)
[2023-11-13] MEDS: LIDOcaine 5% patch TP ONE (21:14)
[2023-11-14] VITALS (8 sets, daily range): BP systolic 95–128; BP diastolic 45–66; PULSE 75–86; RESP 16–21; TEMP 97–98; O2SAT 95–99
[2023-11-14 07:14] LABS: HEMOGLOBIN 8.5 g/dl (12.0-16.0); LYMPHOCYTES # (AUTO) 0.7 X10'3 (1.1-4.8); MONOCYTES # (AUTO) 0.9 X10'3 (0-0.9)
[2023-11-14 07:17] LABS: BASOPHILS % (AUTO) 0.4 % (0-1); EOSINOPHILS % (AUTO) 0.9 % (0-6); HEMATOCRIT 26.9 % (35.0-45.0); LYMPHOCYTES % (AUTO) 12.9 % (21-51); MEAN CORPUSCULAR HEMOGLOBIN 26.2 PG (27.0-31.0); MEAN CORPUSCULAR HGB CONC 31.6 g/dL (33.0-36.5); MEAN CORPUSCULAR VOLUME 82.8 FL (78-98); MEAN PLATELET VOLUME 8.2 FL (7.4-10.4); MONOCYTES % (AUTO) 17.2 % (2-12); NEUTROPHILS # (AUTO) 3.6 X10'3 (1.8-7.7); NEUTROPHILS % (AUTO) 68.6 % (42-75); PLATELET COUNT 130 X10'3 (140-440); RED BLOOD COUNT 3.25 X10'6 (4.20-5.60); RED CELL DISTRIBUTION WIDTH 17.7 % (11.5-14.5); WHITE BLOOD COUNT 5.2 X10'3 (4.5-11.0)
[2023-11-14 07:29] LABS: ALANINE AMINOTRANSFERASE 86 U/L (12-78); ALBUMIN 1.7 G/DL (3.4-5.0); ALBUMIN/GLOBULIN RATIO 0.3 (1.1-1.5); ALKALINE PHOSPHATASE 155 IU/L (46-116); ANION GAP 12 (8-16); ASPARTATE AMINO TRANSFERASE 169 U/L (10-37); BILIRUBIN,TOTAL 0.4 MG/DL (0.1-1.0); BLOOD UREA NITROGEN 18 MG/DL (7-18); CALCIUM 8.2 MG/DL (8.5-10.1); CHLORIDE 105 MMOL/L (99-107); GLUCOSE 197 MG/DL (70-104); MAGNESIUM 2.2 MG/DL (1.5-2.4); POTASSIUM 3.8 MMOL/L (3.5-5.1); SODIUM 134 MMOL/L (135-145); TOTAL CARBON DIOXIDE 16.8 MMOL/L (24-32); TOTAL PROTEIN 6.7 G/DL (6.4-8.2); eCRCL 56 ML/MIN; eGFR 64 ML/MIN
[2023-11-14 08:04] LABS: ANISOCYTOSIS 1+; PLATELET ESTIMATE DECREASED; TOTAL CELLS COUNTED 100
[2023-11-14] MEDS ORDERED: glucagon, human recombinant 1mg kit SUBCUT PRN (08:05)
[2023-11-14] MEDS ORDERED: DEXTROSE 15 GM of carb/4 tabs (each vial/BOTTLE has 4 tablets) PO PRN ×2 (08:05)
[2023-11-14] MEDS ORDERED: dextrose 50%-water 50ml dispensing syringe IV PRN ×2 (08:05)
[2023-11-14] MEDS ORDERED: morphine 2 MG/ML inj. syringe IV PRN ×2 (09:35→10:25)
[2023-11-14] MEDS ORDERED: HYDROcodone/acetaminophen 5mg/325mg tablet PO PRN (10:25)
[2023-11-14] MEDS: HYDROcodone/acetaminophen 5mg/325mg tablet PO PRN (10:37)
[2023-11-14] MEDS: INSULIN LISPRO 100 UNIT/ML INSULN.PEN MULTI-DOSE SQ SCH (12:21)
[2023-11-14] MEDS: VANCOMYCIN LEVEL IV ONE (14:30)
[2023-11-14] MEDS ORDERED: DULO60CA65 PO (15:53)
[2023-11-14] MEDS: HYDROcodone/acetaminophen 10/325mg tab PO PRN (16:52)
[2023-11-14] MEDS: VANCOmycin 1250MG/NS 250ml Bag 250 ML IV SCH (16:53)
[2023-11-14] MEDS: JUVEN Smoothie Arginine/Glut./Ca2+Bmb (Juven 19.3pkt) 240ml cup PO SCH (17:30)
[2023-11-15] VITALS (21 sets, daily range): BP systolic 113–132; BP diastolic 61–91; PULSE 67–81; RESP 13–20; TEMP 97–98.6; O2SAT 95–100
[2023-11-15] MEDS: metroNIDAZOLE-Flagyl 500mg/NS 100 ML IV SCH (01:00)
[2023-11-15 05:45] LABS: BASOPHILS % (AUTO) 0.6 % (0-1); EOSINOPHILS # (AUTO) 0.1 X10'3 (0-0.9); HEMATOCRIT 27.3 % (35.0-45.0); HEMOGLOBIN 8.9 g/dl (12.0-16.0); LYMPHOCYTES # (AUTO) 0.9 X10'3 (1.1-4.8); LYMPHOCYTES % (AUTO) 13.8 % (21-51); MEAN CORPUSCULAR HEMOGLOBIN 26.6 PG (27.0-31.0); MEAN CORPUSCULAR HGB CONC 32.6 g/dL (33.0-36.5); MEAN CORPUSCULAR VOLUME 81.6 FL (78-98); MEAN PLATELET VOLUME 8.6 FL (7.4-10.4); MONOCYTES # (AUTO) 0.9 X10'3 (0-0.9); MONOCYTES % (AUTO) 13.3 % (2-12); NEUTROPHILS # (AUTO) 4.8 X10'3 (1.8-7.7); NEUTROPHILS % (AUTO) 70.3 % (42-75); PLATELET COUNT 164 X10'3 (140-440); RED BLOOD COUNT 3.34 X10'6 (4.20-5.60); RED CELL DISTRIBUTION WIDTH 17.4 % (11.5-14.5); WHITE BLOOD COUNT 6.8 X10'3 (4.5-11.0)
[2023-11-15 05:54] LABS: ANION GAP 7 (8-16); BLOOD UREA NITROGEN 19 MG/DL (7-18); BUN/CREATININE RATIO 21.1 (10.0-20.0); CHLORIDE 104 MMOL/L (99-107); GLUCOSE 298 MG/DL (70-104); POTASSIUM 3.6 MMOL/L (3.5-5.1); SODIUM 133 MMOL/L (135-145); TOTAL CARBON DIOXIDE 21.8 MMOL/L (24-32)
[2023-11-15 05:55] LABS: ALANINE AMINOTRANSFERASE 70 U/L (12-78); ALBUMIN 1.6 G/DL (3.4-5.0); ALBUMIN/GLOBULIN RATIO 0.3 (1.1-1.5); ALKALINE PHOSPHATASE 149 IU/L (46-116); ASPARTATE AMINO TRANSFERASE 78 U/L (10-37); BILIRUBIN,TOTAL 0.3 MG/DL (0.1-1.0); CALCIUM 8.1 MG/DL (8.5-10.1); TOTAL PROTEIN 6.8 G/DL (6.4-8.2); eCRCL 56 ML/MIN; eGFR 64 ML/MIN
[2023-11-15] MEDS ORDERED: sevoflurane 250ml liquid IH ONE (07:20)
[2023-11-15] MEDS: cloNIDine hcl/PF 100mcg/ml inj ONE (07:21)
[2023-11-15] MEDS ORDERED: ondansetron/PF 4mg/2ml inj IV PRN (07:25)
[2023-11-15] MEDS ORDERED: morphine 2 MG/ML inj. syringe IV PRN (07:25)
[2023-11-15] MEDS ORDERED: morphine 4 MG/ML inj SYRINge IV PRN (07:25)
[2023-11-15] MEDS ORDERED: hydrALAZINE 20mg/ml inj. IV PRN (07:25)
[2023-11-15] MEDS ORDERED: HYDROmorphone/PF 0.2 MG/ML SYRINGE IV PRN ×2 (07:25)
[2023-11-15] MEDS ORDERED: proCHLORperazine 10 MG/2 ml inj IV PRN (07:25)
[2023-11-15] MEDS: insulin regular, human 10 units/0.1 ml syringe ONE (07:25)
[2023-11-15] MEDS ORDERED: meperidine/PF 25mg/ml syringe IV PRN (07:25)
[2023-11-15] MEDS ORDERED: labetalol 20mg/4ml (5mg/ml) syringe IV PRN (07:25)
[2023-11-15] MEDS ORDERED: midazolam 1 mg/ML 2ml injection ONE (07:28)
[2023-11-15] MEDS ORDERED: fentaNYL /PF 50mcg/ml 5ml ampule ONE (07:49)
[2023-11-15] MEDS: metFORMIN 500mg tablet PO SCH (08:00)
[2023-11-15] MEDS ORDERED: LIDOcaine 2% (20mg/ml) 5ml vial ONE (08:09)
[2023-11-15] MEDS ORDERED: propofol inj 20 ML IV ONE (08:10)
[2023-11-15] MEDS ORDERED: dexamethasone sod phosphate 4mg/ml inj. ONE (08:10)
[2023-11-15] MEDS ORDERED: ondansetron/PF 4mg/2ml inj ONE (08:10)
[2023-11-15] MEDS ORDERED: ROPIVAcaine 0.5% (5mg/ml) 30ml vial ONE (08:10)
[2023-11-15] MEDS ORDERED: albuterol 60 PUFF/8GM Inhaler (90mcg/1 puff) IH ONE (08:24)
[2023-11-15] MEDS: SEMAGLUTIDE 2 MG SQ SCH (08:55)
[2023-11-15] MEDS: acetaminophen 1,000mg/100ml IV 100 ML IV ONE (09:02)
[2023-11-15] MEDS: insulin regular, human 10 units/0.1 ml syringe SQ ONE (09:05)
[2023-11-15] MEDS: ringers solution, lacted 1,000 ML IV SCH (13:19)
[2023-11-15] MEDS ORDERED: INSULIN LISPRO 100 UNIT/ML INSULN.PEN MULTI-DOSE SQ SCH (21:00)
[2023-11-15] MEDS: INSULIN LISPRO 100 UNIT/ML INSULN.PEN MULTI-DOSE SQ SCH (21:00)
[2023-11-15] MEDS: gabapentin 300mg capsule PO SCH (21:02)
[2023-11-15] MEDS: insulin glargine (Lantus) pen - multi-dose SQ SCH (21:31)
[2023-11-16 02:00] VITALS: BP 123/74; PULSE 65; RESP 15; TEMP 98.3; O2SAT 97
[2023-11-16 05:32] LABS: BASOPHILS # (AUTO) 0.1 X10'3 (0-0.2); BASOPHILS % (AUTO) 0.8 % (0-1); EOSINOPHILS % (AUTO) 0.1 % (0-6); HEMATOCRIT 24.7 % (35.0-45.0); LYMPHOCYTES # (AUTO) 0.9 X10'3 (1.1-4.8); MEAN CORPUSCULAR HEMOGLOBIN 26.6 PG (27.0-31.0); MEAN CORPUSCULAR HGB CONC 32.6 g/dL (33.0-36.5); MEAN CORPUSCULAR VOLUME 81.6 FL (78-98); MEAN PLATELET VOLUME 9.3 FL (7.4-10.4); MONOCYTES # (AUTO) 0.6 X10'3 (0-0.9); MONOCYTES % (AUTO) 8.7 % (2-12); NEUTROPHILS # (AUTO) 5.5 X10'3 (1.8-7.7); NEUTROPHILS % (AUTO) 77.4 % (42-75); PLATELET COUNT 165 X10'3 (140-440); RED BLOOD COUNT 3.02 X10'6 (4.20-5.60); RED CELL DISTRIBUTION WIDTH 17.6 % (11.5-14.5); WHITE BLOOD COUNT 7.1 X10'3 (4.5-11.0)
[2023-11-16 05:43] LABS: ALANINE AMINOTRANSFERASE 51 U/L (12-78); ALBUMIN 1.6 G/DL (3.4-5.0); ALBUMIN/GLOBULIN RATIO 0.3 (1.1-1.5); ALKALINE PHOSPHATASE 127 IU/L (46-116); ANION GAP 6 (8-16); ASPARTATE AMINO TRANSFERASE 38 U/L (10-37); BILIRUBIN,TOTAL 0.2 MG/DL (0.1-1.0); BLOOD UREA NITROGEN 23 MG/DL (7-18); BUN/CREATININE RATIO 28.8 (10.0-20.0); CALCIUM 8.3 MG/DL (8.5-10.1); CHLORIDE 104 MMOL/L (99-107); GLUCOSE 255 MG/DL (70-104); MAGNESIUM 2.2 MG/DL (1.5-2.4); SODIUM 132 MMOL/L (135-145); TOTAL CARBON DIOXIDE 21.9 MMOL/L (24-32); TOTAL PROTEIN 6.8 G/DL (6.4-8.2); VANCOMYCIN,TROUGH 17.4 ug/mL (10.0-20.0); eCRCL 63 ML/MIN; eGFR 73 ML/MIN
[2023-11-16 05:45] LABS: POTASSIUM 3.9 MMOL/L (3.5-5.1)
[2023-11-16 06:00] VITALS: BP 130/75; PULSE 70; RESP 12; TEMP 97.7; O2SAT 99
[2023-11-16] MEDS: duloxetine 30mg CAPSULE.DR PO SCH (08:00)
[2023-11-16] MEDS: MELOXICAM 7.5 MG TABLET PO SCH (08:01)
[2023-11-16] MEDS ORDERED: INSULIN LISPRO 100 UNIT/ML INSULN.PEN MULTI-DOSE SQ SCH (09:00)
[2023-11-16] MEDS: VANCOMYCIN LEVEL IV ONE (09:40)
[2023-11-16 11:00] VITALS: BP 110/59; PULSE 75; RESP 14; TEMP 98; O2SAT 97
[2023-11-16 15:00] VITALS: BP 103/53; PULSE 80; RESP 14; TEMP 97.7; O2SAT 97
[2023-11-16 18:00] VITALS: BP 120/67; PULSE 93; RESP 16; TEMP 97.7; O2SAT 98
[2023-11-16 22:00] VITALS: BP 134/78; PULSE 77; RESP 18; TEMP 98.6; O2SAT 98
[2023-11-17] VITALS (7 sets, daily range): BP systolic 128–143; BP diastolic 74–81; PULSE 75–84; RESP 10–20; TEMP 96.9–98.4; O2SAT 96–99
[2023-11-17 06:46] LABS: BASOPHILS # (AUTO) 0.1 X10'3 (0-0.2); BASOPHILS % (AUTO) 0.6 % (0-1); EOSINOPHILS # (AUTO) 0.2 X10'3 (0-0.9); EOSINOPHILS % (AUTO) 2.4 % (0-6); HEMATOCRIT 28.4 % (35.0-45.0); HEMOGLOBIN 9.3 g/dl (12.0-16.0); LYMPHOCYTES % (AUTO) 21.1 % (21-51); MEAN CORPUSCULAR HEMOGLOBIN 26.6 PG (27.0-31.0); MEAN CORPUSCULAR HGB CONC 32.8 g/dL (33.0-36.5); MEAN CORPUSCULAR VOLUME 81.2 FL (78-98); MEAN PLATELET VOLUME 8.1 FL (7.4-10.4); MONOCYTES # (AUTO) 0.9 X10'3 (0-0.9); MONOCYTES % (AUTO) 9.3 % (2-12); NEUTROPHILS # (AUTO) 6.3 X10'3 (1.8-7.7); NEUTROPHILS % (AUTO) 66.6 % (42-75); PLATELET COUNT 237 X10'3 (140-440); RED CELL DISTRIBUTION WIDTH 17.1 % (11.5-14.5); WHITE BLOOD COUNT 9.5 X10'3 (4.5-11.0)
[2023-11-17 07:06] LABS: ALANINE AMINOTRANSFERASE 44 U/L (12-78); ALBUMIN 1.6 G/DL (3.4-5.0); ALBUMIN/GLOBULIN RATIO 0.3 (1.1-1.5); ALKALINE PHOSPHATASE 114 IU/L (46-116); ANION GAP 9 (8-16); ASPARTATE AMINO TRANSFERASE 32 U/L (10-37); BILIRUBIN,TOTAL 0.2 MG/DL (0.1-1.0); BLOOD UREA NITROGEN 20 MG/DL (7-18); CHLORIDE 105 MMOL/L (99-107); GLUCOSE 174 MG/DL (70-104); MAGNESIUM 2.1 MG/DL (1.5-2.4); POTASSIUM 3.3 MMOL/L (3.5-5.1); SODIUM 135 MMOL/L (135-145); TOTAL CARBON DIOXIDE 20.8 MMOL/L (24-32); TOTAL PROTEIN 6.6 G/DL (6.4-8.2); eCRCL 63 ML/MIN; eGFR 73 ML/MIN
[2023-11-17] MEDS ORDERED: potassium Cl 40MEQ/1/2NS 520ml 520 ML IV PRN (07:25)
[2023-11-17] MEDS ORDERED: potassium Cl 20 mEq SR tablet PO PRN (07:25)
[2023-11-17] MEDS: potassium Cl 20 mEq SR tablet PO PRN (07:36)
[2023-11-17 08:40] LABS: TOTAL CELLS COUNTED 100
[2023-11-17 08:41] LABS: ANISOCYTOSIS 1+; PLATELET ESTIMATE NORMAL
[2023-11-18] VITALS (7 sets, daily range): BP systolic 137–144; BP diastolic 64–82; PULSE 74–81; RESP 13–16; TEMP 97.4–98; O2SAT 96–99
[2023-11-18 07:59] LABS: BASOPHILS # (AUTO) 0.1 X10'3 (0-0.2); BASOPHILS % (AUTO) 0.7 % (0-1); EOSINOPHILS # (AUTO) 0.3 X10'3 (0-0.9); HEMATOCRIT 29.4 % (35.0-45.0); HEMOGLOBIN 9.3 g/dl (12.0-16.0); LYMPHOCYTES # (AUTO) 2.2 X10'3 (1.1-4.8); MEAN CORPUSCULAR HGB CONC 31.7 g/dL (33.0-36.5); MEAN CORPUSCULAR VOLUME 82.2 FL (78-98); MONOCYTES # (AUTO) 0.9 X10'3 (0-0.9); MONOCYTES % (AUTO) 7.7 % (2-12); NEUTROPHILS % (AUTO) 69.6 % (42-75); PLATELET COUNT 289 X10'3 (140-440); RED BLOOD COUNT 3.57 X10'6 (4.20-5.60); RED CELL DISTRIBUTION WIDTH 17.3 % (11.5-14.5); WHITE BLOOD COUNT 11.5 X10'3 (4.5-11.0)
[2023-11-18 08:15] LABS: ALANINE AMINOTRANSFERASE 32 U/L (12-78); ALBUMIN 1.6 G/DL (3.4-5.0); ALBUMIN/GLOBULIN RATIO 0.3 (1.1-1.5); ALKALINE PHOSPHATASE 110 IU/L (46-116); ANION GAP 5 (8-16); ASPARTATE AMINO TRANSFERASE 28 U/L (10-37); BILIRUBIN,TOTAL 0.3 MG/DL (0.1-1.0); BLOOD UREA NITROGEN 14 MG/DL (7-18); BUN/CREATININE RATIO 18.4 (10.0-20.0); CALCIUM 8.3 MG/DL (8.5-10.1); CHLORIDE 106 MMOL/L (99-107); CREATININE 0.76 MG/DL (0.40-0.90); GLUCOSE 158 MG/DL (70-104); POTASSIUM 3.9 MMOL/L (3.5-5.1); SODIUM 137 MMOL/L (135-145); TOTAL CARBON DIOXIDE 25.7 MMOL/L (24-32); TOTAL PROTEIN 6.7 G/DL (6.4-8.2); eCRCL 66 ML/MIN; eGFR 78 ML/MIN
[2023-11-18 09:28] LABS: TOTAL CELLS COUNTED 100
[2023-11-18 09:30] LABS: PLATELET ESTIMATE NORMAL
[2023-11-18 09:31] LABS: POLYCHROMASIA FEW
[2023-11-19 02:00] VITALS: BP 143/77; PULSE 75; RESP 15; TEMP 98.6; O2SAT 97
[2023-11-19 07:13] VITALS: BP 147/91; PULSE 78; RESP 20; TEMP 98.4; O2SAT 97
[2023-11-19 08:43] LABS: BASOPHILS # (AUTO) 0.1 X10'3 (0-0.2); BASOPHILS % (AUTO) 0.7 % (0-1); EOSINOPHILS # (AUTO) 0.3 X10'3 (0-0.9); EOSINOPHILS % (AUTO) 2.6 % (0-6); HEMATOCRIT 29.6 % (35.0-45.0); HEMOGLOBIN 9.5 g/dl (12.0-16.0); LYMPHOCYTES # (AUTO) 2.1 X10'3 (1.1-4.8); LYMPHOCYTES % (AUTO) 17.1 % (21-51); MEAN CORPUSCULAR HEMOGLOBIN 26.2 PG (27.0-31.0); MEAN CORPUSCULAR VOLUME 81.8 FL (78-98); MEAN PLATELET VOLUME 7.6 FL (7.4-10.4); MONOCYTES # (AUTO) 0.8 X10'3 (0-0.9); MONOCYTES % (AUTO) 6.2 % (2-12); NEUTROPHILS # (AUTO) 9.2 X10'3 (1.8-7.7); NEUTROPHILS % (AUTO) 73.4 % (42-75); PLATELET COUNT 329 X10'3 (140-440); RED BLOOD COUNT 3.62 X10'6 (4.20-5.60); RED CELL DISTRIBUTION WIDTH 17.6 % (11.5-14.5); WHITE BLOOD COUNT 12.5 X10'3 (4.5-11.0)
[2023-11-19 08:53] LABS: ALBUMIN 1.8 G/DL (3.4-5.0); ANION GAP 3 (8-16); BLOOD UREA NITROGEN 12 MG/DL (7-18); BUN/CREATININE RATIO 15.4 (10.0-20.0); CALCIUM 8.5 MG/DL (8.5-10.1); CHLORIDE 101 MMOL/L (99-107); CREATININE 0.78 MG/DL (0.40-0.90); GLUCOSE 171 MG/DL (70-104); POTASSIUM 3.9 MMOL/L (3.5-5.1); SODIUM 133 MMOL/L (135-145); TOTAL CARBON DIOXIDE 28.8 MMOL/L (24-32); eCRCL 64 ML/MIN; eGFR 76 ML/MIN
[2023-11-19 09:13] LABS: TOTAL CELLS COUNTED 100
[2023-11-19 09:14] LABS: PLATELET ESTIMATE NORMAL; POLYCHROMASIA FEW; STOMATOCYTES FEW
[2023-11-19 09:16] LABS: SMUDGE CELLS FEW
[2023-11-19 12:27] VITALS: BP 139/77; PULSE 87; RESP 16; TEMP 98.7; O2SAT 95
[2023-11-19 16:26] VITALS: BP 133/77; PULSE 91; RESP 16; TEMP 98.4; O2SAT 97
== END 2023-11-19 17:01 | DRG 711 ==
LOC: ER 23:16 → ED HOLD 11-13 02:14 → PCU 3S 11-13 05:00
PROVIDERS: ADMIT Internal Medicine; ATTEND Family Medicine
PROC: 3E0T3BZ Introduction of Anesthetic Agent into Peripheral Nerves and Plexi, Percutaneous Approach (ICD-10-PCS; 2023-11-15)
PROC: 0Y6H0Z3 Detachment at Right Lower Leg, Low, Open Approach (ICD-10-PCS; principal; 2023-11-15 07:20)
DX: T81.49XA Infection following a procedure, other surgical site, initial encounter (principal); N17.0 Acute kidney failure with tubular necrosis; G93.41 Metabolic encephalopathy; E11.10 Type 2 diabetes mellitus with ketoacidosis without coma; M86.8X6 Other osteomyelitis, lower leg; E11.52 Type 2 diabetes mellitus with diabetic peripheral angiopathy with gangrene; E87.3 Alkalosis; E87.1 Hypo-osmolality and hyponatremia; M86.8X8 Other osteomyelitis, other site; L03.115 Cellulitis of right lower limb; E11.69 Type 2 diabetes mellitus with other specified complication; D50.9 Iron deficiency anemia, unspecified; I10 Essential (primary) hypertension; E11.40 Type 2 diabetes mellitus with diabetic neuropathy, unspecified; Y83.8 Other surgical procedures as the cause of abnormal reaction of the patient, or of later complication, without mention of misadventure at the time of the procedure; Z98.891 History of uterine scar from previous surgery; Z79.84 Long term (current) use of oral hypoglycemic drugs; Z79.899 Other long term (current) drug therapy; Y92.89 Other specified places as the place of occurrence of the external cause
CPT/HCPCS: 36415; 36600; 71045; 73700; 80048; 80053; 80202; 81001; 82570; 82607; 82728; 82803; 82948; 83540; 83550; 83605; 83735; 83930; 83935; 84100; 84132; 84145; 84295; 84300; 84466; 85007; 85018; 85025; 87040; 87070; 87075; 87076; 87077; 87081; 87102; 87186; 97110; 97161; 97530; 99285; A4618; A6196; A6222; A6446; A6449; A7000; G0378; J0131; J0692; J0696; J0735; J1100; J1644; J1815; J2250; J2405; J2704; J2795; J3010; J3370; J3480; J3490; J7030; J7040; J7120

== ENCOUNTER 2024-01-05 06:50 | Day surgery (SDC) | payer MEDICAID ==
[2024-01-05] VITALS (16 sets, daily range): BP systolic 90–127; BP diastolic 46–72; PULSE 83–96; RESP 9–16; TEMP 98.3; O2SAT 93–100
[~2024-01-05] VITALS: Ht 160 cm; Wt 89.5 kg
[2024-01-05] MEDS: cefazolin 2gm/D5W 100mL 100 ML IV ONE (05:30)
[~2024-01-05 06:50] MED LIST changes: -DICL100G59 TOP; +DOCU100C38 PO; -DULO-31 PO; +DULO60CA65 PO; +ENOX40SY7 SUBCUT; +HYDR-3973 PO; -LIDO15CR11 TOP; +LIDO1ADH19 TOP; -PRAZ1CAP5 PO
[2024-01-05] MEDS: LIDOcaine 2% (20mg/ml) 5ml vial ONE (07:37)
[2024-01-05] MEDS: BUPIVAcaine/PF 2.5mg/ml (0.25%) 10ml vial ONE (07:37)
[2024-01-05] MEDS ORDERED: sevoflurane 250ml liquid IH ONE (07:41)
[2024-01-05] MEDS: famotidine 20mg tablet PO ONE (07:55)
[2024-01-05] MEDS: ringers solution, lacted 1,000 ML IV SCH (07:55)
[2024-01-05] MEDS ORDERED: fentaNYL/PF 50MCG/1 ML 2ML syringe ONE (09:38)
[2024-01-05] MEDS ORDERED: propofol inj 20 ML IV ONE (10:40)
[2024-01-05] MEDS ORDERED: ondansetron/PF 4mg/2ml inj ONE (10:41)
[2024-01-05] MEDS ORDERED: labetalol 20mg/4ml (5mg/ml) syringe IV PRN (10:50)
[2024-01-05] MEDS ORDERED: HYDROmorphone/PF 0.2 MG/ML SYRINGE IV PRN (10:50)
[2024-01-05] MEDS ORDERED: ondansetron/PF 4mg/2ml inj IV PRN (10:50)
[2024-01-05] MEDS: HYDROmorphone/PF 0.2 MG/ML SYRINGE IV PRN (11:03)
[2024-01-05] MEDS: HYDROcodone/acetaminophen 10/325mg tab PO ONE (11:38)
== END 2024-01-05 13:50 ==
LOC: PAS 06:50
PROVIDERS: ATTEND Orthopaedic Surgery Hand Surgery
DX: L08.9 Local infection of the skin and subcutaneous tissue, unspecified (principal); T81.49XA Infection following a procedure, other surgical site, initial encounter; I10 Essential (primary) hypertension; E11.9 Type 2 diabetes mellitus without complications; E78.00 Pure hypercholesterolemia, unspecified; F41.9 Anxiety disorder, unspecified; F32.A Depression, unspecified; Z79.84 Long term (current) use of oral hypoglycemic drugs; Z79.899 Other long term (current) drug therapy; Z98.891 History of uterine scar from previous surgery; Z98.890 Other specified postprocedural states; Z83.3 Family history of diabetes mellitus; Z80.1 Family history of malignant neoplasm of trachea, bronchus and lung; X58.XXXA Exposure to other specified factors, initial encounter; Y93.89 Activity, other specified; Y92.89 Other specified places as the place of occurrence of the external cause; Y99.8 Other external cause status
CPT/HCPCS: 27884; 82948; 87070; 87075; A6222; J0690; J1170; J2405; J2704; J3010; J3490; J7030; J7120; Z7506; Z7512; A4618; A6446; A6449; A7000

== ENCOUNTER 2024-03-15 06:50 | Day surgery (SDC) | payer MEDICAID ==
[2024-03-11 12:11] LABS: BASOPHILS % (AUTO) 0.5 % (0-1); EOSINOPHILS # (AUTO) 0.4 X10'3 (0-0.9); LYMPHOCYTES # (AUTO) 1.5 X10'3 (1.1-4.8); MEAN CORPUSCULAR HEMOGLOBIN 25.4 PG (27.0-31.0); MEAN CORPUSCULAR HGB CONC 31.9 g/dL (33.0-36.5); MEAN CORPUSCULAR VOLUME 79.5 FL (78-98); MEAN PLATELET VOLUME 9.2 FL (7.4-10.4); MONOCYTES # (AUTO) 0.3 X10'3 (0-0.9); MONOCYTES % (AUTO) 5.2 % (2-12); NEUTROPHILS # (AUTO) 4.3 X10'3 (1.8-7.7); NEUTROPHILS % (AUTO) 65.3 % (42-75); PRE OP HEMATOCRIT 35.4 % (35.0-45.0); PRE OP HEMOGLOBIN 11.3 g/dL (12.0-16.0); PRE OP PLATELET COUNT 224 X10'3 (140-440); PRE OP WHITE BLOOD COUNT 6.5 10'3 (4.8-10.8); RED BLOOD COUNT 4.45 X10'6 (4.20-5.60); RED CELL DISTRIBUTION WIDTH 18.4 % (11.5-14.5)
[2024-03-11 12:27] LABS: ALBUMIN 3.2 G/DL (3.4-5.0); ALBUMIN/GLOBULIN RATIO 0.7 (1.1-1.5); ALKALINE PHOSPHATASE 95 IU/L (46-116); BLOOD UREA NITROGEN 28 MG/DL (7-18); BUN/CREATININE RATIO 23.9 (10.0-20.0); CALCIUM 9.1 MG/DL (8.5-10.1); CHLORIDE 104 MMOL/L (99-107); CREATININE 1.17 MG/DL (0.40-0.90); PRE OP ALT 18 U/L (30-65); PRE OP ANION GAP 9 (8-16); PRE OP AST 11 U/L (10-37); PRE OP BILIRUB, TOTAL 0.3 MG/DL (0.0-1.0); PRE OP POTASSIUM 4.8 MMOL/L (3.4-5.1); PRE OP SODIUM 137 MMOL/L (135-145); TOTAL PROTEIN 7.5 G/DL (6.4-8.2); eGFR 47 ML/MIN
[2024-03-11 12:29] LABS: PRE OP GLUCOSE 278 MG/DL (70-104)
[~2024-03-15] VITALS: Ht 160 cm; Wt 92.4 kg
[2024-03-15] VITALS (9 sets, daily range): BP systolic 109–138; BP diastolic 56–83; PULSE 74–79; RESP 11–16; TEMP 98.3; O2SAT 95–100
[~2024-03-15 06:50] MED LIST changes: +ACET325T55; +CYCL-145 PO; +DICL100G59 TOP; -DOCU100C38 PO; +DULO30CA52 PO; +DULO60CA61 PO; -DULO60CA65 PO; -ENOX40SY7 SUBCUT; +GABA-1405 PO; -GABA600T13 PO; -HYDR-3973 PO; -LIDO1ADH19 TOP; +LISI10TA27 PO; -LISI20TA28 PO; -MELO-102 PO; +PRAZ1CAP5 PO; +cefazolin 2gm/D5W 100mL 100 ML IV ONE
[2024-03-15] MEDS: famotidine 20mg tablet PO ONE (07:47)
[2024-03-15] MEDS: ringers solution, lacted 1,000 ML IV SCH (07:48)
[2024-03-15] MEDS: insulin regular, human 10 units/0.1 ml syringe SQ ONE (08:16)
[2024-03-15] MEDS ORDERED: cloNIDine hcl/PF 100mcg/ml inj ONE (08:30)
[2024-03-15] MEDS ORDERED: labetalol 20mg/4ml (5mg/ml) syringe IV PRN (08:35)
[2024-03-15] MEDS ORDERED: morphine 4 MG/ML inj SYRINge IV PRN (08:35)
[2024-03-15] MEDS ORDERED: hydrALAZINE 20mg/ml inj. IV PRN (08:35)
[2024-03-15] MEDS ORDERED: ondansetron/PF 4mg/2ml inj IV PRN (08:35)
[2024-03-15] MEDS ORDERED: HYDROmorphone/PF 0.2 MG/ML SYRINGE IV PRN (08:35)
[2024-03-15] MEDS ORDERED: ringers solution, lacted 1,000 ML IV SCH (08:35)
[2024-03-15] MEDS ORDERED: proCHLORperazine 10 MG/2 ml inj IV PRN (08:35)
[2024-03-15] MEDS ORDERED: morphine 2 MG/ML inj. syringe IV PRN (08:35)
[2024-03-15] MEDS ORDERED: meperidine/PF 25mg/ml syringe IV PRN (08:35)
[2024-03-15] MEDS ORDERED: ROPIVAcaine 0.5% (5mg/ml) 30ml vial ONE ×2 (09:16→09:43)
[2024-03-15] MEDS ORDERED: fentaNYL/PF 50MCG/1 ML 2ML syringe ONE (09:18)
[2024-03-15] MEDS ORDERED: midazolam 1 mg/ML 2ml injection ONE (09:18)
[2024-03-15] MEDS ORDERED: BUPIVAcaine/PF 2.5mg/ml (0.25%) 10ml vial ONE (09:22)
[2024-03-15] MEDS ORDERED: propofol inj 20 ML IV ONE ×3 (09:42→10:02)
[2024-03-15] MEDS ORDERED: LIDOcaine 1%/PF 5ML 10 MG/ML VIAL ONE (09:42)
[2024-03-15] MEDS ORDERED: dexamethasone sod phosphate 4mg/ml inj. ONE (09:43)
[2024-03-15] MEDS: HYDROmorphone/PF 0.2 MG/ML SYRINGE IV PRN (10:36)
[2024-03-15] MEDS: acetaminophen 1,000mg/100ml IV 100 ML IV ONE (10:36)
[2024-03-15] MEDS: oxyCODONE/APAP 10/325mg tablet PO ONE (11:16)
== END 2024-03-15 12:28 | disposition home or self-care (01) ==
LOC: PAS 06:50
PROVIDERS: ATTEND Orthopaedic Surgery Hand Surgery
DX: T87.81 Dehiscence of amputation stump (principal); T87.43 Infection of amputation stump, right lower extremity; G89.18 Other acute postprocedural pain; I10 Essential (primary) hypertension; E11.9 Type 2 diabetes mellitus without complications; E66.9 Obesity, unspecified; F41.9 Anxiety disorder, unspecified; F32.A Depression, unspecified; G62.9 Polyneuropathy, unspecified; Z79.84 Long term (current) use of oral hypoglycemic drugs; Z79.899 Other long term (current) drug therapy; Z89.511 Acquired absence of right leg below knee; Z98.891 History of uterine scar from previous surgery; Z98.890 Other specified postprocedural states; Z68.36 Body mass index [BMI] 36.0-36.9, adult; Z82.49 Family history of ischemic heart disease and other diseases of the circulatory system; Z82.5 Family history of asthma and other chronic lower respiratory diseases; Y83.8 Other surgical procedures as the cause of abnormal reaction of the patient, or of later complication, without mention of misadventure at the time of the procedure; Y92.89 Other specified places as the place of occurrence of the external cause
CPT/HCPCS: 11042; 36415; 64445; 80053; 82948; 83036; 85025; 87070; 87075; 87077; 87186; A6222; J0131; J0690; J0735; J1100; J1171; J1815; J2250; J2704; J2795; J3010; J3490; J7030; J7120; Z7506; Z7508; Z7512; A4615; A4618; A6449; A7000

== ENCOUNTER 2025-05-06 15:29 | Emergency (ER) | payer MEDICAID ==
[~2025-05-06] VITALS: Ht 160 cm; Wt 88.2 kg
[~2025-05-06 15:29] MED LIST changes: -cefazolin 2gm/D5W 100mL 100 ML IV ONE
[2025-05-06 15:40] VITALS: TEMP 98.2
[2025-05-06] MEDS: amox tr/potassium clavulanate 500mg/125mg TAB PO ONE (16:17)
[2025-05-06 16:25] VITALS: BP 121/89; PULSE 89; RESP 16; O2SAT 98
--- NOTE | 2025-05-06 16:57 | Physician Documentation ---
History of Present Illness ~ Chief Complaint: Toe pain Stated Complaint: INFECTED L TOE Time Seen by MD: 16:02 OK to notify your PCP?: Yes Primary Medical Doctor: Anthony Celis MD Mode of Arrival: POV HPI 59-year-old female patient with diabetes mellitus came to the emergency room because she was told to go to the ER by wound care for her left 2nd toe that has been ulcerating for at least three four weeks. It started out by wearing the tennis shoe without socks. No other complaints. The patient denies fever or chills nausea vomiting. Blood sugar control is between 110 to 125. Tetanus witin 5 years: Yes Medication Reconciliation Allergies: Coded Allergies: No Known Allergies (Unverified , 05/06/25) Scheduled Amox Tr/Potassium Clavulanate (Augmentin 500-125 Tablet), 1 TAB PO Q12H Atorvastatin Calcium* (Lipitor*), 1 TAB PO DAILY, (Reported) Dapagliflozin Propanediol (Farxiga), 1 TAB PO DAILY, (Reported) Diclofenac Sodium (Diclofenac Sodium), 1 APPLIC TOP QID, (Reported) Duloxetine HCl (Duloxetine HCl), 1 CAP PO DAILY, (Reported) Duloxetine HCl (Cymbalta), 1 CAP PO DAILY, (Reported) Gabapentin (Gabapentin), 1 TAB PO DAILY, (Reported) Insulin Glargine,Hum.rec.anlog (Basaglar Kwikpen U-100), 10 UNITS WS, (Reported) Insulin Lispro (Humalog), 4-10 UNITS SQ CC, (Reported) Lisinopril (Lisinopril), 1 TAB PO DAILY, (Reported) Metformin HCl (Metformin HCl), 1 TAB PO Q12H, (Reported) Prazosin Hcl (Prazosin Hcl), 1 CAP PO BID, (Reported) Semaglutide (Ozempic), 2 MG SUBCUT Q7D, (Reported) Scheduled PRN Cyclobenzaprine HCl (Cyclobenzaprine HCl), 1 TAB PO BID PRN for pain, (Reported) Miscellaneous Medications Acetaminophen (Acetaminophen), (Reported) Past Medical History Past Medical History: Hypertension, Diabetes Past Surgical History: abdominal surgery, Alcohol Use: None Drug Use: none Lives with: Spouse Lives In: Home Review of Systems ROS As stated above in the HPI, otherwise all systems are reviewed and negative. Physical Exam Vital Signs: Temperature: 98.2, Source: Temporal, Heart Rate: 89, Respiratory Rate: 16, BP: 121/89, Pulse Oximetry: 98, Weight: 88.180 Oxygen Flow Rate: 0 Physical Exam Reviewed vital signs and they are well within normal range. Const: Not in acute cardiopulmonary distress Head: Atraumatic Eyes: Normal Conjunctiva ENT: Normal External Ears, Nose and Mouth. Moist mucous membranes Neck: Full range of motion. No meningismus Resp: Clear to auscultation bilaterally. Normal work of breathing Cardio: Regular rate and rhythm, no murmurs. Skin well perfused Abd: Soft, non-tender, non-distended. Normal bowel sounds. No rebound or guarding Skin: No petechiae or rashes. Warm and dry Back: No midline or flank tenderness Ext: No cyanosis, or edema Second toe dorsal aspect of the left foot shows dime-sized ulceration on top of the IP joint. Scabbing and not using any purulent discharge. The whole toe is darker then the rest Neuro: Awake and alert Psych: Normal Mood and Affect Progress Results/Orders Results/Orders Completed Orders - MARCE GARCIA MD Amox Tr/Potassium Clavulanate (Augmentin (05/06/25 16:15) Vital Signs 05/06/25 05/06/25 05/06/25 15:40 16:02 16:25 Temp 98.2 Pulse 96 89 89 Resp 18 16 16 B/P (MAP) 150/78 121/81 (94) 121/89 Pulse Ox 98 98 98 O2 Flow Rate 0 0 Medical Decision Making Additional information obtaine: other Findings During the physical examination, the findings suggestive of acute life-thr eatening condition such as JVD, tracheal deviation, acidotic breathing, noisy stridorous breath sounds, pulses paradoxus, muffled heart sounds, unequal breath sounds, abdominal rigidity and rebound tenderness, focal neurological deficits, cool clammy skin, severe hypotension, severe tachycardia or bradycardia are absent. The toe examination shows that it is confined to the 2nd toe of left side. I told her that she does not need IV antibiotics at this point of time and I will put her on Augmentin. She needs to see a plumber pipe fitting for that. We came to the shared decision-making that she will be discharged home. DISCLAIMER Inadvertent spelling and grammatical errors,inadvertent supervisor framing mill errors,syntax errors, grammatical errors, and spelling errors are likely due to EMR/dictation software use and do not reflect on the overall quality of patient care. Note that the electronic time recorded on this note does not necessarily reflect the actual time of the patient encounter. General Diff Dx:Considerations: Include: Abrasion Knee Diff Dx:Considerations: Include: Abrasion Ankle Diff Dx:Considerations: Include: Abrasion Foot Diff Dx:Considerations: Include: Abrasion Toe Diff Dx:Considerations: Include: Abrasion Departure Disposition: 01 HOME / SELF CARE / HOMELESS Impression: Primary Impression: Diabetic toe ulcer Condition: Stable Additional Instructions: Thank you for coming to our Emergency Department today. Keep it moving so that circulation is well maintained and good. Please see a plumber pipe fitting as soon as possible. Please ask your nurse or provider if you have questions about your care today and do not leave until all your questions have been answered. Please use any medications given as directed and follow-up with your doctor (or the doctor you were referred to) in the next 1-3 days. Your primary care doctor can help to coordinate outpatient specialty care and provide authorization for specialty referral as needed. If you do not have a primary care doctor you may [facility] up [facility] a [facility]. You may also use motrin and tylenol as needed for fever and/or pain unless instructed otherwise by your provider or nurse. Indications for more urgent follow-up have been discussed, but you may return to the Emergency Department at ANY time for any worrisome or worsening symptoms. County Facilities: [facility] Facilities: [facility]: [facility] [place] Address:[address] [place] [address] [facility]: [place] Address:[address] [place] [id number] [facility]: [facility] Address:[address] [place] [address] [facility] Address:[address] [place], [place] [id number] Registration Billing Pharmacy [facility] Address:[facility] [place] [address] Referrals: NO PRIMARY CARE PROVIDER (PCP) Prescriptions Amox Tr/Potassium Clavulanate (Augmentin 500-125 Tablet) 1 Each Tablet 1 TAB PO Q12H for 10 Days, #20 TAB Prov: MARCE GARCIA MD 05/06/25 Education Educated: Patient Educated regarding: diagnosis, treatment, need for follow up Signature Scribe Signature: x Attestation: MARCE Bermudez MD May 06, 2025 16:57
[2025-05-06] MEDS ORDERED: AMOX-115 PO (16:59)
== END 2025-05-06 17:06 | disposition home or self-care (01) ==
LOC: ER 15:30
DX: E11.621 Type 2 diabetes mellitus with foot ulcer (principal); I10 Essential (primary) hypertension
CPT/HCPCS: 99283